=== PATIENT | male | born 1940 | race Caucasian/White ===

== ENCOUNTER 2021-03-20 14:23 | Inpatient (IN) ==
--- NOTE | 2021-03-20 15:54 | Emergency Department Note ---
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 Patient saw his primary care doctor yesterday no imaging was done. Patient continues to have pain and swelling in both legs mostly in the right knee and in the right foot and has been unable to ambulate due to the pain and swelling. 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 Patient also has a history of lymphedema. Patient has history atrial fibrillation takes high-dose aspirin daily. Does not take any other anticoagulants. Denies history of congestive heart failure liver or kidney disease. Patient denies any chest pain shortness of breath denies any headache head injury or neck pain or back injury or pain. Patient feels he is unable to manage at home due to difficulty with transfer and ambulation and feels he needs to be admitted to the hospital for short stay followed by [facility] for rehab. Related Data Home Medications Medication Instructions Recorded Confirmed aspirin [Ecotrin] 2,600 mg PO QDAY 01/15/21 01/15/21 metoprolol succinate 50 mg PO QDAY 01/15/21 01/15/21 Allergies Allergy/AdvReac Type Severity Reaction Status Date / Time No Known Drug Allergies Allergy Verified 01/15/21 09:35 Review of Systems ROS ROS Narrative: Narrative: All systems ED: reviewed and negative except as stated. Constitutional: Denies fever, chills and sweats Eyes: Denies vision change Cardiovascular: Denies chest pain Respiratory: Denies shortness of breath and cough Gastrointestinal: Denies abdominal pain, vomiting and diarrhea Genitourinary: Reports frequency Musculoskeletal: Reports as per HPI Integumentary: Denies rash Neurological: Denies headache and dizziness Endocrine: Denies polydipsia and polyuria Hematological/Lymphatic: Denies easy bleeding and easy bruising [facility] Narrative Patient History Narrative: Narrative: Medical/Surgical/Family History All Active Problems (Updated 03/20/21 @ 16:49 by Stephan Engel MD) Arthritis of knee, right (Acute) Fall as cause of accidental injury at home as place of occurrence (Acute) Knee pain, right (Acute) Contusion of foot (Acute) Need for assistance due to unsteady gait (Acute) Social History Smoking Status: Never smoker Exam Narrative Narrative: Constitutional: Awake alert no acute distress well-nourished well- developed HEENT: Normocephalic, atraumatic PERRLA, EOMI, oral mucosa moist, pharynx clear, Neck: Supple, no lymphadenopathy, no JVD Lungs: Breathing unlabored, lungs clear Cardiac: Regular regular rhythm normal distal pulses, GI: Soft nontender nondistended no guarding no rebound Musculoskeletal: Bilateral lower extremity edema, and tenderness bilateral thighs and calves, right knee is swollen and tender with limited range of motion, bilateral feet with swelling with tenderness and ecchymosis over multiple toes on the right. Neuro: Awake alert, cranial nerves II through XII grossly intact, no focal motor or sensory deficits Psychiatric: Normal mood and affect Skin: Warm dry no rash, cap refill less than 2 seconds Course Vital Signs Vital signs: Vital Signs Temperature 97.7 F 03/20/21 14:24 Pulse Rate 99 H 03/20/21 14:24 Respiratory Rate 18 03/20/21 14:24 Blood Pressure 111/62 03/20/21 14:24 Pulse Oximetry (%) 95 03/20/21 14:24 Temperature 97.7 F 03/20/21 14:24 Pulse Rate 99 H 03/20/21 14:24 Respiratory Rate 18 03/20/21 14:24 Blood Pressure 111/62 03/20/21 14:24 Pulse Oximetry (%) 95 03/20/21 14:24 [facility] MDM Narrative Medical decision making narrative: Narrative: 81-year-old male, 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 Also has or bruising over his right foot. Patient is unable to manage at home due to difficulty with ambulation and transferring. Patient will need short stay in the hospital followed by [facility] placement. Imaging has been ordered and is pending including x-ray of right knee x-ray of right foot and bilateral lower extremity venous Dopplers. Basic labs are also pending. Case discussed with oncoming physician who will review results and disposition patient. Differential Diagnosis Differential Diagnosis: muscle strain, right knee fx/sprain, DVT, right foot fx/sprain Lab Data Result diagrams: 03/20/21 16:00 03/20/21 16:00 Labs: Lab Results 03/20/21 Range/Units 16:00 WBC 8.8 (4.5-11.0) K/mcL RBC 3.98 L (4.50-5.90) M/mcL Hgb 14.3 (13.5-16.5) g/dL Hct 42.9 (41.0-55.0) % MCV 107.8 H (80.0-100.0) fL MCH 35.9 H (26.0-34.0) pg MCHC 33.3 (31.0-36.0) g/dL RDW 12.4 (11.5-14.5) % Plt Count 133 L (140-440) K/mcL MPV 10.0 (7.4-10.4) fL Discharge Plan Patient/Caregiver Discharge Instructions Pt seen by RESTAURANT SERVICE MANAGER/PA only: No Clinical Impression: Knee pain, right, Contusion of foot, Need for assistance due to unsteady gait Patient Disposition: Still a Patient Follow up with: Fahad Dorado MD [Primary Care Provider] - Prescriptions: No Action metoprolol succinate 50 mg Tablet Extended Release 24 Hr 50 mg PO QDAY RF: 0 aspirin [Ecotrin] 325 mg Tablet,Delayed Release (Dr/Ec) 2,600 mg PO QDAY RF: 0
[2021-03-20 16:48] LABS: Hematocrit 42.9 % (41.0-55.0); Hemoglobin 14.3 g/dL (13.5-16.5); Mean Cell Volume 107.8 fL (80.0-100.0); Mean Corpuscular HGB Conc 33.3 g/dL (31.0-36.0); Platelet Count 133 K/mcL (140-440); RBC 3.98 M/mcL (4.50-5.90); Red Cell Distribution Width 12.4 % (11.5-14.5); WBC 8.8 K/mcL (4.5-11.0)
--- NOTE | 2021-03-20 16:59 | Ultrasound Report ---
CLINICAL INFORMATION: Bilateral leg swelling COMPARISON: None. FINDINGS: The entire deep venous system of both lower extremities including the common femoral, superficial femoral, popliteal and paired trifurcation calf veins are easily compressible and show normal venous blood flow on color and spectral Doppler. No evidence of thrombus IMPRESSION: Negative exam - no evidence of deep vein thrombosis in both lower extremities. Interpreted and Authenticated by: Marvin Lawrence 03/20/21
--- NOTE | 2021-03-20 17:08 | XRay Report ---
CLINICAL INFORMATION: pain/fall COMPARISON: 01/15/2021 FINDINGS: No acute fracture identified. Exuberant callus around an old solidly unified fibular diaphyseal fracture. Severe patellofemoral and tibiofemoral degeneration in noted resulting in a genu valgus deformity. Moderate posttraumatic effusion in the suprapatellar bursa noted. IMPRESSION: 1. No fracture identified. Moderate supra patellar effusion is posttraumatic 2. 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 3. Healed fracture of the proximal fibular diaphysis with exuberant surrounding callus Interpreted and Authenticated by: Marvin Lawrence 03/20/21
--- NOTE | 2021-03-20 17:12 | XRay Report ---
CLINICAL INFORMATION: pain/fall COMPARISON: None. FINDINGS: Hairline spiral fracture of the first proximal phalangeal diaphysis appreciated. There are also nondisplaced oblique fracture through the second third fourth and fifth proximal phalangeal bases. First through fifth hammertoe deformities appreciated. Mild degenerative change present in all MTT, first MTP and interphalangeal joints. Moderate forefoot and midfoot soft tissue swelling noted. IMPRESSION: 1. Nondisplaced spiral hairline fracture throughout the first proximal phalanx. 2. Nondisplaced oblique fractures of the second, third, fourth and fifth proximal phalangeal bases. 3. Moderate forefoot and midfoot soft tissue swelling 4. First through fifth hammertoe deformities. Interpreted and Authenticated by: Marvin Lawrence 03/20/21
[2021-03-20 17:20] LABS: Eosinophils % (Manual) 1 % (0-7); Lymphocytes % 14 % (15-49); Macrocytosis 1+ (None Seen); Monocytes % (Manual) 11 % (1-12); Platelet Estimate DECREASED (Normal); RBC Morphology ABNORMAL (Normal); Segmented Neutrophils % 74 % (38-78)
[2021-03-20] MEDS ORDERED: ACETAMINOPHEN 650 MG/65 ML BAG IV PRN ×2 (17:43→20:45)
[2021-03-20] MEDS ORDERED: traMADol 50 MG TABLET PO ONE (17:44)
[2021-03-20 19:01] LABS: ALT/SGPT 12 U/L (<40); AST/SGOT 25 U/L (<40); Albumin 3.7 gm/dL (3.2-5.2); Albumin/Globulin Ratio 1.1 (1.0-2.3); Alkaline Phosphatase 92 U/L (39-117); Blood Urea Nitrogen 12 mg/dL (8-23); Calcium 8.7 mg/dL (8.6-10.4); Carbon Dioxide 27 mmol/L (22-30); Chloride 99 mmol/L (96-108); Globulin 3.3 gm/dL (2.2-3.7); Glomerular Filtration Rate 88; Glucose 140 mg/dL (70-105)
--- NOTE | 2021-03-20 19:28 | Emergency Department Note ---
HPI General Chief complaint: Fall Stated complaint: fall Time Seen by Provider: 03/20/21 15:23 Source: patient Mode of arrival: EMS Limitations: no limitations History of Present Illness HPI Narrative: Narrative: Patient was signed out to me by Dr. Rebollar, and I agree with work-up and plan thus far. Is my understanding the patient is an elderly retired medical field representative, who is coming in for worsening symptoms of inability to walk, multiple falls, and right foot pain. At signout, blood work and x-rays were pending. Vital signs were stable. Patient was resting comfortably in bed, and I did personally see and examine him. He is sitting up in bed, eating and drinking, and does not appear to be in acute discomfort or distress. Swelling to the right knee noted, as well as ecchymosis and bruising to the right foot. Otherwise no other significant findings. Related Data Home Medications Medication Instructions Recorded Confirmed aspirin [Ecotrin] 2,600 mg PO QDAY 01/15/21 01/15/21 metoprolol succinate 50 mg PO QDAY 01/15/21 01/15/21 Allergies Allergy/AdvReac Type Severity Reaction Status Date / Time No Known Drug Allergies Allergy Verified 01/15/21 09:35 Review of Systems ROS ROS Narrative: Narrative: Genitourinary: Reports frequency Musculoskeletal: Reports as per HPI [facility] Narrative Patient History Narrative: Narrative: Medical/Surgical/Family History All Active Problems (Updated 03/20/21 @ 19:26 by Juliocesar Tidwell DO) Arthritis of knee, right (Acute) Fall as cause of accidental injury at home as place of occurrence (Acute) Knee pain, right (Acute) Contusion of foot (Acute) Need for assistance due to unsteady gait (Acute) Closed fracture of toe (Acute) Social History Smoking Status: Never smoker Exam Narrative Narrative: Narrative: General Limitations: no limitations Course Vital Signs Vital signs: Vital Signs Temperature 97.7 F 03/20/21 14:24 Pulse Rate 99 H 03/20/21 14:24 Respiratory Rate 18 03/20/21 14:24 Blood Pressure 111/62 03/20/21 14:24 Pulse Oximetry (%) 95 03/20/21 14:24 Temperature 97.7 F 03/20/21 18:21 Pulse Rate 103 H 03/20/21 17:10 Respiratory Rate 16 03/20/21 17:09 Blood Pressure 140/82 03/20/21 17:16 Pulse Oximetry (%) 98 03/20/21 17:10 MDM MDM Narrative Medical decision making narrative: Narrative: Patient presented with chief complaint of falls and weakness. At this time patient has x-rays that were mostly negative outside of multiple fractures of every toe on his right foot. No significant displacement so the patient was placed into a walking boot for support while they heal. Blood work was unremarkable, however given the patient's persistent weakness is now becoming debilitating to the point where he has difficult times even sitting up or pivoting without significant help, the patient is concerned that he cannot take care of himself at home anymore. He is requesting to be admitted because he needs either rehab or placement into a assisted living or snf facility. I did discuss case the hospitalist, who agrees the plan at this time. Lab Data Result diagrams: 03/20/21 16:00 03/20/21 17:56 Labs: Lab Results 03/20/21 03/20/21 03/20/21 Range/Units 16:00 16:00 16:00 WBC 8.8 (4.5-11.0) K/mcL RBC 3.98 L (4.50-5.90) M/mcL Hgb 14.3 (13.5-16.5) g/dL Hct 42.9 (41.0-55.0) % MCV 107.8 H (80.0-100.0) fL MCH 35.9 H (26.0-34.0) pg MCHC 33.3 (31.0-36.0) g/dL RDW 12.4 (11.5-14.5) % Plt Count 133 L (140-440) K/mcL MPV 10.0 (7.4-10.4) fL Seg Neutrophils % 74 (38-78) % Lymphocytes % 14 L (15-49) % Monocytes % (Manual) 11 (1-12) % Eosinophils % (Manual) 1 (0-7) % Platelet Estimate Decreased A (Normal) RBC Morphology Abnormal A (Normal) Macrocytosis 1+ A (None Seen) Sodium TNP Potassium TNP Chloride TNP Carbon Dioxide TNP Anion Gap TNP BUN TNP Creatinine TNP GFR Calculation TNP Glucose TNP Calcium TNP Total Bilirubin TNP AST TNP ALT TNP Alkaline Phosphatase TNP Total Protein TNP Albumin TNP Globulin TNP Albumin/Globulin Ratio TNP Salicylates 9.3 mg/dL 03/20/21 Range/Units 17:56 WBC (4.5-11.0) K/mcL RBC (4.50-5.90) M/mcL Hgb (13.5-16.5) g/dL Hct (41.0-55.0) % MCV (80.0-100.0) fL MCH (26.0-34.0) pg MCHC (31.0-36.0) g/dL RDW (11.5-14.5) % Plt Count (140-440) K/mcL MPV (7.4-10.4) fL Seg Neutrophils % (38-78) % Lymphocytes % (15-49) % Monocytes % (Manual) (1-12) % Eosinophils % (Manual) (0-7) % Platelet Estimate (Normal) RBC Morphology (Normal) Macrocytosis (None Seen) Sodium 135 Potassium 4.0 Chloride 99 Carbon Dioxide 27 Anion Gap 9.0 BUN 12 Creatinine 0.7 GFR Calculation 88 Glucose 140 H Calcium 8.7 Total Bilirubin 1.0 AST 25 ALT 12 Alkaline Phosphatase 92 Total Protein 7.0 Albumin 3.7 Globulin 3.3 Albumin/Globulin Ratio 1.1 Salicylates mg/dL ED POC Tests ED POC Tests: JORDEN - SARS Antigen Negative Discharge Plan Patient/Caregiver Discharge Instructions Pt seen by EDITOR IN CHIEF NEWSPAPER/PA only: No Clinical Impression: Knee pain, right, Contusion of foot, Need for assistance due to unsteady gait, Closed fracture of toe Patient Disposition: Xfer As Inpt ([facility]) Follow up with: Fahad Dorado MD [Primary Care Provider] - Prescriptions: No Action metoprolol succinate 50 mg Tablet Extended Release 24 Hr 50 mg PO QDAY RF: 0 aspirin [Ecotrin] 325 mg Tablet,Delayed Release (Dr/Ec) 2,600 mg PO QDAY RF: 0
[2021-03-20] MEDS ORDERED: ONDANSETRON 4 MG/2 ML VIAL IV PRN ×2 (19:34→20:45)
--- NOTE | 2021-03-20 19:50 | Internal Med History&Physical ---
HPI History of Present Illness Patient information: Note initiated : 03/20/21 at 7:45 pm Service Date, if different from initiated Date: [] Patient: Crescencio Yang a 81 y/o M admitted on for fall. Chief Complaint: [] History of present illness: Mr. Yang is a 81 year old M Who presents the ED for weakness after fall and inability to walk and right foot pain. Patient fell about 3 days ago. Right foot swollen and bruised. Labs are unremarkable vital signs are unremarkable. Patient unsafe for home. Work-up in ED revealed fracture of the right toes with surrounding edema. Review of Systems: denies headache/fever/chills/nausea/vomiting/chest or abdominal pain/cough/dyspnea/diarrhea. Otherwise see above. PFSH PFSH All Active Problems (Updated 03/20/21 @ 19:26 by Juliocesar Tidwell DO) Arthritis of knee, right (Acute) Fall as cause of accidental injury at home as place of occurrence (Acute) Knee pain, right (Acute) Contusion of foot (Acute) Need for assistance due to unsteady gait (Acute) Closed fracture of toe (Acute) MEDS/ALLERGIES Home Medications and Allergies Home Medications Medication Instructions Recorded Confirmed Type aspirin [Ecotrin] 2,600 mg PO QDAY PRN 01/15/21 03/20/21 History metoprolol succinate 25 mg PO QDAY 01/15/21 03/20/21 History Allergies Allergy/AdvReac Type Severity Reaction Status Date / Time No Known Drug Allergies Allergy Verified 01/15/21 09:35 EXAM Constitutional Vitals: Temp Pulse Resp BP Pulse Ox 97.7 F 103 H 16 140/82 98 03/20/21 18:21 03/20/21 17:10 03/20/21 17:09 03/20/21 17:16 03/20/21 17:10 Exam: General: Alert, Awake, No acute Distress, obese Eyes/N/T: EOMI, Head/Neck: neck supple, normocephalic atraumatic CV: RRR, No murmurs, normal s1/s2 Pulm: Clear b/l, no wheezing/rhonchi/rales Abd: soft, nontender, +BS x4 Ext: no clubbing/cyanosis, right foot edema/bruising Neuro: Alert, no focal deficits, moves all extremities, CN 2-12 grossly intact, Skin: warm/dry DATA Data Completed and Pending Labs: Labs from last 24 hours 03/20/21 03/20/21 03/20/21 17:56 16:00 16:00 WBC RBC Hgb Hct MCV MCH MCHC RDW Plt Count MPV Seg Neutrophils % Lymphocytes % Monocytes % (Manual) Eosinophils % (Manual) Platelet Estimate RBC Morphology Macrocytosis Sodium 135 TNP Potassium 4.0 TNP Chloride 99 TNP Carbon Dioxide 27 TNP Anion Gap 9.0 TNP BUN 12 TNP Creatinine 0.7 TNP GFR Calculation 88 TNP Glucose 140 H TNP Calcium 8.7 TNP Total Bilirubin 1.0 TNP AST 25 TNP ALT 12 TNP Alkaline Phosphatase 92 TNP Total Protein 7.0 TNP Albumin 3.7 TNP Globulin 3.3 TNP Albumin/Globulin Ratio 1.1 TNP Salicylates 9.3 03/20/21 16:00 WBC 8.8 RBC 3.98 L Hgb 14.3 Hct 42.9 MCV 107.8 H MCH 35.9 H MCHC 33.3 RDW 12.4 Plt Count 133 L MPV 10.0 Seg Neutrophils % 74 Lymphocytes % 14 L Monocytes % (Manual) 11 Eosinophils % (Manual) 1 Platelet Estimate Decreased A RBC Morphology Abnormal A Macrocytosis 1+ A Sodium Potassium Chloride Carbon Dioxide Anion Gap BUN Creatinine GFR Calculation Glucose Calcium Total Bilirubin AST ALT Alkaline Phosphatase Total Protein Albumin Globulin Albumin/Globulin Ratio Salicylates A/P Narrative A/P Narrative: A: *Fall/inability to walk/multiple toe fractures of the right foot: *Osteoarthritis: *Spinal stenosis with neuropathy: *Afib: Not on anticoagulation by choice but does take multiple aspirin daily. on BB * P: -pt/to -CM for placement -boot to right foot -pain control -wound care, right foot -cont home BB - -ppx: lovenox Time Spent With Patient Time: Total time spent is greater than 50% in coordination of care (as documented) at patient's floor/unit and/or counseling patient:
[2021-03-20] MEDS ORDERED: POLYETHYLENE GLYCOL 3350 17 GM PACKET PO PRN (20:45)
[2021-03-20] MEDS ORDERED: POTASSIUM CHLORIDE 40 MEQ in DEXTROSE 5% IN WATER 500 ML IV PRN (20:45)
[2021-03-20] MEDS ORDERED: MAGNESIUM SULFATE 2 GM/50 ML BAG IV PRN (20:45)
[2021-03-20] MEDS ORDERED: oxyCODONE HCL 5 MG TABLET PO PRN (20:45)
[2021-03-20] MEDS ORDERED: SENNOSIDES 1 TABLET PO PRN (20:45)
[2021-03-20] MEDS ORDERED: POTASSIUM CHLORIDE 20 MEQ TABLET PO PRN ×2 (20:45)
[2021-03-20] MEDS ORDERED: 0.9 % SODIUM CHLORIDE 10 ML SYRINGE IV SCH (22:00)
[2021-03-20] MEDS ORDERED: ASPIRIN 325 MG ENTERIC COATED TABLET PO SCH (22:00)
[2021-03-20] MEDS ORDERED: METOPROLOL TARTRATE 25 MG TABLET ONE (22:08)
[2021-03-20] MEDS: DOCUSATE SODIUM 100 MG CAPSULE PO SCH (22:43)
[2021-03-20] MEDS: 0.9 % SODIUM CHLORIDE 10 ML SYRINGE IV SCH (22:44)
[2021-03-21] MEDS ORDERED: traMADol 50 MG TABLET PO ONE ×2 (01:06→05:47)
[2021-03-21] MEDS: traMADol 50 MG TABLET PO PRN ×2 (01:06→14:38)
[2021-03-21] MEDS: 0.9 % SODIUM CHLORIDE 10 ML SYRINGE IV SCH ×3 (06:07→21:17)
--- NOTE | 2021-03-21 07:30 | Internal Med Progress Note ---
SUBJECTIVE Subjective Patient information: Note initiated : 03/21/21 at 7:29 am Service Date, if different from initiated Date: [] Patient: Crescencio Yang a 81 y/o M admitted on 03/20/21 for fall. Chief Complaint: [] Interval history: History of present illness: Mr. Yang is a 81 year old M Who presents the ED for weakness after fall and inability to walk and right foot pain. Patient fell about 3 days ago. Right foot swollen and bruised. Labs are unremarkable vital signs are unremarkable. Patient unsafe for home. Work-up in ED revealed fracture of the right toes with surrounding edema. 03/21 No overnight event or new complaints. Worked with physical therapy this morning. Review of Systems: denies headache/fever/chills/nausea/vomiting/chest or abdominal pain/cough/dyspnea/diarrhea. Otherwise see above. Constitutional Vitals: Vital Signs Temp Pulse Resp BP Pulse Ox 98.9 F 86 16 105/68 93 03/21/21 07:20 03/21/21 07:20 03/21/21 07:20 03/21/21 07:20 03/21/21 07:20 Period Temp Pulse Resp BP Sys/Osorio Pulse Ox Last 24 Hr 97.7 F-98.9 F 84-103 16-18 99-177/56-88 93-98 Intake and Output 03/20/21 03/21/21 03/21/21 21:59 05:59 13:59 Intake Total 65 400 65 Output Total 550 200 Balance 65 -150 -135 Weight 139.253 kg Intake & Output: Intake & Output 03/20/21 03/21/21 03/21/21 21:59 05:59 13:59 Intake Total 65 400 65 Output Total 550 200 Balance 65 -150 -135 Weight 139.253 kg Intake: IV 65 65 Oral 400 Output: Void Amount 550 200 Other: Urine Appearance Clear Clear Clear Urine Color Bright Yellow Dark Yellow Dark Jessica Urine Odor Normal Exam: General: Alert, Awake, No acute Distress, obese Eyes/N/T: EOMI, Head/Neck: neck supple, CV: RRR, No murmurs, Pulm: Clear b/l, no wheezing/rhonchi/rales Abd: soft, nontender, +BS x4 Ext: no clubbing/cyanosis, right foot edema/bruising Neuro: Alert, no focal deficits, moves all extremities, Skin: warm/dry OBJ DATA Labs CBC & Chem 7: 03/20/21 16:00 03/20/21 17:56 Labs: Abnormal Lab Results 03/20/21 03/20/21 17:56 16:00 RBC 3.98 L MCV 107.8 H MCH 35.9 H Plt Count 133 L Lymphocytes % 14 L Platelet Estimate Decreased A RBC Morphology Abnormal A Macrocytosis 1+ A Glucose 140 H Meds: Medications Aspirin (Aspirin 325 Mg Enteric Coated Tablet) 325 mg PO HS [facility] Last Admin: 03/20/21 22:43 Dose: 325 mg Documented by: Docusate Sodium (Docusate Sodium 100 Mg Capsule) 100 mg PO BID [facility] Last Admin: 03/20/21 22:43 Dose: 100 mg Documented by: Enoxaparin Sodium (Enoxaparin 40 Mg/0.4 Ml Syringe) 40 mg SQ DAILY [facility] Acetaminophen (Ofirmev) 650 mg in 65 mls @ 130 mls/hr IV Q6HP PRN; Protocol PRN Reason: PAIN/FEVER > 101 Last Infusion: 03/21/21 07:04 Dose: Infused Documented by: Potassium Chloride 40 meq/ (Dextrose) 520 mls @ 130 mls/hr IV UD PRN PRN Reason: Potassium < 3 Magnesium Sulfate (Magnesium Sulfate) 2 gm in 50 mls @ 50 mls/hr IV UD PRN PRN Reason: Magnesium </= 1.6 Metoprolol Succinate (Metoprolol Succinate 25 Mg Tab.Xl.24h) 25 mg PO [facility] Ondansetron HCl (Ondansetron 4 Mg/2 Ml Vial) 4 mg IV Q4HP PRN PRN Reason: Nausea And Vomiting Oxycodone HCl (Oxycodone Hcl 5 Mg Tablet) 0 mg PO Q4HP PRN; Protocol PRN Reason: Per Pain Protocol Polyethylene Glycol (Polyethylene Glycol 3350 17 Gm Packet) 17 gm PO DAILYP PRN PRN Reason: Constipation Potassium Chloride (Potassium Chloride 20 Meq Tablet) 40 meq PO UD PRN PRN Reason: Potssium is 3-3.5 Potassium Chloride (Potassium Chloride 20 Meq Tablet) 40 meq PO UD PRN PRN Reason: Potassium < 3 Senna (Sennosides 1 Tablet) 2 tab PO DAILYP PRN PRN Reason: Constipation Sodium Chloride (0.9 % Sodium Chloride 10 Ml Syringe) 10 ml IV Q8 MONY Last Admin: 03/21/21 06:07 Dose: 10 ml Documented by: Tramadol HCl (Tramadol 50 Mg Tablet) 50 mg PO Q6HP PRN; Protocol PRN Reason: Pain Last Admin: 03/21/21 01:06 Dose: 50 mg Documented by: A/P Narrative A/P Narrative: A: *Fall/inability to walk/multiple toe fractures of the right foot: *Osteoarthritis: *Spinal stenosis with neuropathy: *Afib: Not on anticoagulation by choice but does take multiple aspirin daily. on BB P: -pt/to -CM for placement -boot to right foot -pain control -wound care, right foot -cont home BB -ppx: lovenox Time Spent With Patient Time: Total time spent is greater than 50% in coordination of care (as documented) at patient's floor/unit and/or counseling patient: QUALITY VTE Deep Vein Thrombosis/Pulmonary Embolism Present on Admission: No
[2021-03-21] MEDS: DOCUSATE SODIUM 100 MG CAPSULE PO SCH ×2 (08:22→21:16)
[2021-03-21] MEDS ORDERED: ASPIRIN 325 MG ENTERIC COATED TABLET PO SCH (09:00)
[2021-03-21] MEDS ORDERED: ENOXAPARIN 40 MG/0.4 ML SYRINGE SQ SCH (09:00)
[2021-03-21] MEDS ORDERED: METOPROLOL SUCCINATE 50 MG TAB.XL.24H PO SCH (09:00)
--- NOTE | 2021-03-21 09:28 | Discharge Summary ---
Discharge Provider Provider Patient information: Note initiated : 03/21/21 at 9:26 am Service Date, if different from initiated Date: [] Patient: Crescencio Yang 81 y/o M admitted on 03/20/21 for fall. Chief Complaint: [] Date of admission: 03/20/21 20:37 Primary care physician: Fahad Dorado Consults: 03/20/21 Consult to Physician [CONS] Stat Comment: Consulting Provider: Morris Najera Reason For Exam: Physician to Consult Discharge Meds Discharge Medications Home Medications aspirin [Ecotrin] 975 mg PO TID 01/15/21 [History Confirmed 03/21/21 Last Taken 03/20/21 11:00] metoprolol succinate 25 mg PO QDAY 01/15/21 [History Confirmed 03/20/21 Last Taken 03/19/21 21:00] COURSE Hospital Course Hospital course: Interval history: History of present illness: Mr. Yang is a 81 year old M Who presents the ED for weakness after fall and inability to walk and right foot pain. Patient fell about 3 days ago. Right foot swollen and bruised. Labs are unremarkable vital signs are unremarkable. Patient unsafe for home. Work-up in ED revealed fracture of the right toes with surrounding edema. 03/21 No overnight event or new complaints. Worked with physical therapy this morning. A: *Fall/inability to walk/multiple toe fractures of the right foot: *Osteoarthritis: *Spinal stenosis with neuropathy: *Afib: Not on anticoagulation by choice but does take multiple aspirin daily. on BB Discharge diagnosis: Fall inability to walk right toe fractures Secondary discharge diagnosis: Spinal stenosis with neuropathy osteoarthritis A. fib but has refused anticoagulation Time Spent with Patient Time attestation: Total time spent providing and/or coordinating discharge services: Time spent: Greater than 30 minutes EXAM Constitutional Vitals: Temp Pulse Resp BP Pulse Ox 98.9 F 72 16 105/68 93 03/21/21 07:20 03/21/21 08:00 03/21/21 07:20 03/21/21 07:20 03/21/21 07:20 Discharge Data Data Completed and Pending Labs on day of discharge: Labs from last 24 hours 03/20/21 03/20/21 03/20/21 17:56 16:00 16:00 WBC RBC Hgb Hct MCV MCH MCHC RDW Plt Count MPV Seg Neutrophils % Lymphocytes % Monocytes % (Manual) Eosinophils % (Manual) Platelet Estimate RBC Morphology Macrocytosis Sodium 135 TNP Potassium 4.0 TNP Chloride 99 TNP Carbon Dioxide 27 TNP Anion Gap 9.0 TNP BUN 12 TNP Creatinine 0.7 TNP GFR Calculation 88 TNP Glucose 140 H TNP Calcium 8.7 TNP Total Bilirubin 1.0 TNP AST 25 TNP ALT 12 TNP Alkaline Phosphatase 92 TNP Total Protein 7.0 TNP Albumin 3.7 TNP Globulin 3.3 TNP Albumin/Globulin Ratio 1.1 TNP Salicylates 9.3 03/20/21 16:00 WBC 8.8 RBC 3.98 L Hgb 14.3 Hct 42.9 MCV 107.8 H MCH 35.9 H MCHC 33.3 RDW 12.4 Plt Count 133 L MPV 10.0 Seg Neutrophils % 74 Lymphocytes % 14 L Monocytes % (Manual) 11 Eosinophils % (Manual) 1 Platelet Estimate Decreased A RBC Morphology Abnormal A Macrocytosis 1+ A Sodium Potassium Chloride Carbon Dioxide Anion Gap BUN Creatinine GFR Calculation Glucose Calcium Total Bilirubin AST ALT Alkaline Phosphatase Total Protein Albumin Globulin Albumin/Globulin Ratio Salicylates Discharge Plan Patient/Caregiver Discharge Instructions Activity: increase activity as tolerated Diet: Regular Diet Prescriptions: No Action metoprolol succinate 50 mg Tablet Extended Release 24 Hr 25 mg PO QDAY RF: 0 aspirin [Ecotrin] 325 mg Tablet,Delayed Release (Dr/Ec) 975 mg PO TID RF: 0 Follow Up Plan Follow up with: Fahad Dorado MD [Primary Care Provider] - Patient Disposition: Xfer SNF Prognosis: Fair Rehab Potential: Fair I certify that the patient requires SNF services: Yes Overall status at discharge: patient is progressing back to baseline QUALITY VTE Deep Vein Thrombosis/Pulmonary Embolism Present on Admission: No
[2021-03-21] MEDS: ASPIRIN 325 MG ENTERIC COATED TABLET PO SCH ×2 (14:38→21:17)
[2021-03-21] MEDS ORDERED: METOPROLOL SUCCINATE 25 MG TAB.XL.24H PO SCH (21:00)
[2021-03-21] MEDS ORDERED: METOPROLOL TARTRATE 5 MG/5 ML VIAL IV ONE ×2 (23:04→23:22)
[2021-03-21] MEDS: METOPROLOL TARTRATE 5 MG/5 ML VIAL IV SCH ×2 (23:09→23:22)
[2021-03-22] MEDS ORDERED: METOPROLOL TARTRATE 5 MG/5 ML VIAL IV ONE (01:45)
[2021-03-22] MEDS: METOPROLOL TARTRATE 5 MG/5 ML VIAL IV SCH ×3 (01:49→16:17)
[2021-03-22] MEDS: METOPROLOL TARTRATE 5 MG/5 ML VIAL IV PRN ×2 (01:50→14:41)
[2021-03-22] MEDS: 0.9 % SODIUM CHLORIDE 10 ML SYRINGE IV SCH ×3 (05:07→22:00)
--- NOTE | 2021-03-22 07:48 | Internal Med Progress Note ---
SUBJECTIVE Subjective Patient information: Note initiated : 03/22/21 at 7:45 am Service Date, if different from initiated Date: [] Patient: Crescencio Yang a 81 y/o M admitted on 03/20/21 for fall. Chief Complaint: [] Interval history: History of present illness: Mr. Yang is a 81 year old M Who presents the ED for weakness after fall and inability to walk and right foot pain. Patient fell about 3 days ago. Right foot swollen and bruised. Labs are unremarkable vital signs are unremarkable. Patient unsafe for home. Work-up in ED revealed fracture of the right toes with surrounding edema. 03/21 No overnight event or new complaints. Worked with physical therapy this morning. 03/22 A. fib RVR last night. IV Lopressor given several times in the night with improved heart rate. No new complaints this morning. We will increase his Toprol. Review of Systems: denies headache/fever/chills/nausea/vomiting/chest or abdominal pain/cough/dys pnea/diarrhea. Otherwise see above. Constitutional Vitals: Vital Signs Temp Pulse Resp BP Pulse Ox 97.7 F 75 16 112/70 95 03/22/21 07:06 03/22/21 07:06 03/22/21 07:06 03/22/21 07:06 03/22/21 07:06 Period Temp Pulse Resp BP Sys/Osorio Pulse Ox Last 24 Hr 97.7 F-99.5 F 72-120 16-20 101-125/64-78 92-95 Intake and Output 03/21/21 03/22/21 03/22/21 21:59 05:59 13:59 Intake Total 240 100 Output Total 250 Balance 240 -150 Weight 149.685 kg Intake & Output: Intake & Output 03/21/21 03/22/21 03/22/21 21:59 05:59 13:59 Intake Total 240 100 Output Total 250 Balance 240 -150 Weight 149.685 kg Intake: Oral 240 100 Output: Void Amount 250 Other: Urine Appearance Clear Clear Urine Color Bright Yellow Bright Yellow Exam: General: Alert, Awake, No acute Distress, obese Eyes/N/T: EOMI, Head/Neck: neck supple, CV: irreg irreg, No murmurs, Pulm: Clear b/l, no wheezing/rhonchi/rales Abd: soft, nontender, +BS x4 Ext: no clubbing/cyanosis, right foot edema/bruising Neuro: Alert, no focal deficits, moves all extremities, Skin: warm/dry OBJ DATA Labs CBC & Chem 7: 03/20/21 16:00 03/20/21 17:56 Labs: Abnormal Lab Results 03/20/21 03/20/21 17:56 16:00 RBC 3.98 L MCV 107.8 H MCH 35.9 H Plt Count 133 L Lymphocytes % 14 L Platelet Estimate Decreased A RBC Morphology Abnormal A Macrocytosis 1+ A Glucose 140 H Meds: Medications Aspirin (Aspirin 325 Mg Enteric Coated Tablet) 975 mg PO TID [facility] Last Admin: 03/21/21 21:17 Dose: 975 mg Documented by: Docusate Sodium (Docusate Sodium 100 Mg Capsule) 100 mg PO BID [facility] Last Admin: 03/21/21 21:16 Dose: 100 mg Documented by: Acetaminophen (Ofirmev) 650 mg in 65 mls @ 130 mls/hr IV Q6HP PRN; Protocol PRN Reason: PAIN/FEVER > 101 Last Infusion: 03/21/21 07:04 Dose: Infused Documented by: Potassium Chloride 40 meq/ (Dextrose) 520 mls @ 130 mls/hr IV UD PRN PRN Reason: Potassium < 3 Magnesium Sulfate (Magnesium Sulfate) 2 gm in 50 mls @ 50 mls/hr IV UD PRN PRN Reason: Magnesium </= 1.6 Metoprolol Succinate (Metoprolol Succinate 25 Mg Tab.Xl.24h) 25 mg PO [facility] Last Admin: 03/21/21 21:16 Dose: 25 mg Documented by: Metoprolol Tartrate (Metoprolol Tartrate 5 Mg/5 Ml Vial) 5 mg IV Q2HP PRN PRN Reason: Tachyarrhythmias Last Admin: 03/22/21 01:50 Dose: 5 mg Documented by: Ondansetron HCl (Ondansetron 4 Mg/2 Ml Vial) 4 mg IV Q4HP PRN PRN Reason: Nausea And Vomiting Oxycodone HCl (Oxycodone Hcl 5 Mg Tablet) 0 mg PO Q4HP PRN; Protocol PRN Reason: Per Pain Protocol Polyethylene Glycol (Polyethylene Glycol 3350 17 Gm Packet) 17 gm PO DAILYP PRN PRN Reason: Constipation Potassium Chloride (Potassium Chloride 20 Meq Tablet) 40 meq PO UD PRN PRN Reason: Potssium is 3-3.5 Potassium Chloride (Potassium Chloride 20 Meq Tablet) 40 meq PO UD PRN PRN Reason: Potassium < 3 Senna (Sennosides 1 Tablet) 2 tab PO DAILYP PRN PRN Reason: Constipation Sodium Chloride (0.9 % Sodium Chloride 10 Ml Syringe) 10 ml IV Q8 [facility] Last Admin: 03/22/21 05:07 Dose: 10 ml Documented by: Tramadol HCl (Tramadol 50 Mg Tablet) 50 mg PO Q6HP PRN; Protocol PRN Reason: Pain Last Admin: 03/21/21 14:38 Dose: 50 mg Documented by: A/P Narrative A/P Narrative: A: *Fall/inability to walk/multiple toe fractures of the right foot: *Osteoarthritis: *Spinal stenosis w/neuropathy: *Afib w/rvr: Not on anticoagulation by choice but does take multiple aspirin daily. on BB P: -pt/to -CM for placement -boot to right foot -pain control -wound care, right foot -cont home BB (increase) -ppx: lovenox (refused, wanted to take extra aspirin) Time Spent With Patient Time: Total time spent is greater than 50% in coordination of care (as documented) at patient's floor/unit and/or counseling patient: QUALITY VTE Deep Vein Thrombosis/Pulmonary Embolism Present on Admission: No
[2021-03-22] MEDS: ASPIRIN 325 MG ENTERIC COATED TABLET PO SCH ×3 (08:15→21:13)
[2021-03-22] MEDS: DOCUSATE SODIUM 100 MG CAPSULE PO SCH ×2 (08:15→20:04)
[2021-03-22 09:00] LABS: ALT/SGPT 44 U/L (<40); AST/SGOT 202 U/L (<40); Albumin 3.2 gm/dL (3.2-5.2); Alkaline Phosphatase 97 U/L (39-117); Bilirubin,Direct 0.5 mg/dL (<0.3); Bilirubin,Total 1.4 mg/dL (0.1-1.0); Blood Urea Nitrogen 10 mg/dL (8-23); Calcium 8.7 mg/dL (8.6-10.4); Carbon Dioxide 27 mmol/L (22-30); Chloride 98 mmol/L (96-108); Globulin 3.1 gm/dL (2.2-3.7); Glomerular Filtration Rate 88; Glucose 98 mg/dL (70-105); Lactate Dehydrogenase 253 U/L (135-225); Phosphorous 2.5 mg/dL (2.5-4.5); Triglycerides 47 mg/dL (<150); Uric Acid 2.3 mg/dL (2.5-8.0)
[2021-03-22] MEDS ORDERED: METOPROLOL SUCCINATE 25 MG TAB.XL.24H PO SCH (09:00)
[2021-03-22] MEDS ORDERED: SODIUM BICARBONATE VIAL 150 MEQ in DEXTROSE 5% IN WATER 850 ML IV SCH (11:30)
[2021-03-22] MEDS ORDERED: SODIUM BICARBONATE VIAL 150 MEQ in WATER FOR INJECTION,STERILE 850 ML IV SCH ×2 (12:00→22:00)
--- NOTE | 2021-03-22 13:05 | General Surgery Consult Note ---
HPI Data of Consult Consult date: 03/22/21 Requesting physician: Morris Najera Primary Care Provider: Fahad Dorado Consult Narrative Patient Information: Note initiated : 03/22/21 at 12:49 pm Service Date, if different from initiated Date: [] Patient: Crescencio Yang 81 y/o M admitted on 03/20/21 for fall. Chief Complaint: [] Chief complaint: Fall at home, resulting in closed fractures RIGHT 2-5 toes, Reason for consult: Wound Care initial evaluation and subsequent f/u. 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 Reviewed details of his present history of fall at home and subsequent events leading to hospitalization at [facility]. Discussed plan of care with Chelsie RN and Jorge Alberto RN I/C and Dr. Najera, Hospitalist physician. Musculoskeletal Musculoskeletal: Present as per HPI and other Additional comments: Patient is currently non ambulatory and NWB on Right foot and leg. ( Closed fractures RIGHT 2-5 toes ) Lymphedema of feet and leg Integumentary Integumentary: Present as per HPI and other Additional comments: Currently foot is bandaged. Toes are PWD. Will take down dressing and examinen wounds in AM (Wednesday03/23/2021 ) PFSH PFSH All Active Problems Arthritis of knee, right (Acute) Fall as cause of accidental injury at home as place of occurrence (Acute) Knee pain, right (Acute) Contusion of foot (Acute) Need for assistance due to unsteady gait (Acute) Closed fracture of toe (Acute) MEDS/ALLERGIES Home Medications and Allergies Home Medications Medication Instructions Recorded Confirmed Type aspirin [Ecotrin] 975 mg PO TID 01/15/21 03/21/21 History metoprolol succinate 25 mg PO QDAY 01/15/21 03/20/21 History Allergies Allergy/AdvReac Type Severity Reaction Status Date / Time No Known Drug Allergies Allergy Verified 01/15/21 09:35 Physical Examination Vital Signs Vital signs: Temp Pulse Resp BP Pulse Ox 97.5 F 77 18 116/71 96 03/22/21 11:21 03/22/21 11:21 03/22/21 11:21 03/22/21 11:21 03/22/21 11:21 General physical appearance General physical exam: well developed, well nourished, no distress and moderate pain Eyes Eye exam: PERRL and normal ocular movement ENT ENT exam: normal pinna, normal mucosa and no congestion Head Head exam IM: Present atraumatic and normocephalic Neck Neck exam: no masses, no lymphadenopathy and no venous distension Cardiovascular Cardiovascular exam IM: Present normal rate and rhythm Respiratory Respiratory exam: normal expansion, normal respiratory effort and clear to auscultation Abdomen Abdomen: Present soft, non tender and bowel sounds Integumentary Integumentary: Present other (RIGHT LE lymphedema of leg and foot. Clean badage covereing foot Toes are PWD. Will check wounds in AM ( Wednesday03/23/2021 )) Neurologic Neurologic: Present other (No gross neural deficits or localising signs. He has peripheral neuropathy of both feet. ) Musculoskeletal Musculoskeletal: Present other (Currently NWB on RIGHT foot. ) Psychiatric Psychiatric: Present oriented to time, oriented to person, oriented to place, speech is normal and memory intact Results Labs Result diagrams: 03/20/21 16:00 03/23/21 05:27 Labs: Abnormal lab results 03/22/21 03/22/21 Range/Units 07:58 07:58 Uric Acid 2.3 L (2.5-8.0) mg/dL Total Bilirubin 1.4 H (0.1-1.0) mg/dL Direct Bilirubin 0.5 H (<0.3) mg/dL AST 202 H (<40) U/L ALT 44 H (<40) U/L Lactate Dehydrogenase 253 H (135-225) U/L Total Creatine Kinase 3758 H (24-195) U/L Diabetes panel 03/22/21 Range/Units 07:58 Sodium 134 (133-145) mmol/L Potassium 4.0 (3.3-5.1) mmol/L Chloride 98 (96-108) mmol/L Carbon Dioxide 27 (22-30) mmol/L BUN 10 (8-23) mg/dL Creatinine 0.7 (0.7-1.2) mg/dL Glucose 98 (70-105) mg/dL Calcium 8.7 (8.6-10.4) mg/dL AST 202 H (<40) U/L ALT 44 H (<40) U/L Alkaline Phosphatase 97 (39-117) U/L Total Protein 6.3 (5.9-8.4) gm/dL Albumin 3.2 (3.2-5.2) gm/dL Triglycerides 47 (<150) mg/dL Calcium panel 03/22/21 Range/Units 07:58 Calcium 8.7 (8.6-10.4) mg/dL Phosphorus 2.5 (2.5-4.5) mg/dL Albumin 3.2 (3.2-5.2) gm/dL Pituitary panel 03/22/21 Range/Units 07:58 Sodium 134 (133-145) mmol/L Potassium 4.0 (3.3-5.1) mmol/L Chloride 98 (96-108) mmol/L Carbon Dioxide 27 (22-30) mmol/L BUN 10 (8-23) mg/dL Creatinine 0.7 (0.7-1.2) mg/dL Glucose 98 (70-105) mg/dL Calcium 8.7 (8.6-10.4) mg/dL Adrenal panel 03/22/21 Range/Units 07:58 Sodium 134 (133-145) mmol/L Potassium 4.0 (3.3-5.1) mmol/L Chloride 98 (96-108) mmol/L Carbon Dioxide 27 (22-30) mmol/L BUN 10 (8-23) mg/dL Creatinine 0.7 (0.7-1.2) mg/dL Glucose 98 (70-105) mg/dL Calcium 8.7 (8.6-10.4) mg/dL Total Bilirubin 1.4 H (0.1-1.0) mg/dL AST 202 H (<40) U/L ALT 44 H (<40) U/L Alkaline Phosphatase 97 (39-117) U/L Total Protein 6.3 (5.9-8.4) gm/dL Albumin 3.2 (3.2-5.2) gm/dL All other labs normal. A/P Narrative A/P Narrative: Assessment: Ground level fall at home. NO h/o LOC or cardiac / respiratory symptoms. Spinal stenosis Peripheral neuropathy. Rhabdomyolysis. Co morbid conditions A Fib. On ASA and BB DJD OA. Plan: Reviewed ongoing medical management. Will check wounds in AM Agree with Short term rehab per CM Will continue with f/u at wound care center after D/C. Time Spent With Patient Time: Total time spent is greater than 50% in coordination of care (as documented) at patient's floor/unit and/or counseling patient: Total time spent with greater than 50% in coordination of care (as documented) at patient's floor/unit and/or counseling patient:: 25 - 35 minutes
[2021-03-22 13:15] LABS: Appearance,Urine CLEAR (Clear); Bilirubin,Urine Negative (Negative); Color,Urine AMBER; Culture Indicated,Urine No; Glucose,Urine (UA) Negative (Negative); Ketones,Urine 20 mg/dL (Negative); Leukocyte Esterase,Urine Negative /ug (Negative); Mucus,Urine MOD /hpf; Nitrate,Urine Negative (Negative); Protein,Urine Negative (Negative); Specific Gravity,Urine 1.025 (1.000-1.035); Urine Hyaline Cast 1 /lph (0-2); Urine RBC 0 /hpf (0-3); Urine Squamous Epithelial Cell < 1 /hpf (0-4); Urine WBC < 1 /hpf (0-4)
[2021-03-22] MEDS ORDERED: IOPAMIDOL 100 ML BOTTLE IV ONE ×2 (13:53→18:08)
[2021-03-22] MEDS ORDERED: SENNOSIDES 1 TABLET PO PRN (18:08)
[2021-03-22] MEDS ORDERED: METOPROLOL TARTRATE 5 MG/5 ML VIAL IV PRN (18:08)
[2021-03-22] MEDS ORDERED: ONDANSETRON 4 MG/2 ML VIAL IV PRN (18:08)
[2021-03-22] MEDS ORDERED: MAGNESIUM SULFATE 2 GM/50 ML BAG IV PRN (18:08)
[2021-03-22] MEDS ORDERED: POTASSIUM CHLORIDE 20 MEQ TABLET PO PRN ×2 (18:08)
[2021-03-22] MEDS ORDERED: POLYETHYLENE GLYCOL 3350 17 GM PACKET PO PRN (18:08)
[2021-03-22] MEDS ORDERED: traMADol 50 MG TABLET PO PRN (18:08)
[2021-03-22] MEDS ORDERED: POTASSIUM CHLORIDE 40 MEQ in DEXTROSE 5% IN WATER 500 ML IV PRN (18:08)
[2021-03-22] MEDS ORDERED: MAGNESIUM SULFATE 8.12 MEQ in DEXTROSE 5% IN WATER 50 ML IV ONE (18:08)
[2021-03-22] MEDS ORDERED: DILTIAZEM 125 MG/25 ML VIAL IV ONE (18:11)
--- NOTE | 2021-03-22 18:32 | Cat Scan Report ---
CLINICAL INFORMATION: Trauma COMPARISON: Foot films 03/20/2021 TECHNIQUE: 0.625 mm helical slices were obtained through the distal femoral metaphysis through the entire calf foot and ankle. Following reconstruction, 2.5 axial, sagittal coronal reformatted images were processed and reviewed at bone and soft tissue windows.. FINDINGS: Acute nondisplaced spiral fracture of the first proximal phalanx and a spiral hairline fracture of the second proximal phalanx appreciated. A transverse minimally displaced fracture through the fifth proximal phalangeal base noted. Subtle cortical step-off the base of the third and fourth proximal phalanges also likely represent fractures although there were better visualized on plain film. There are no acute fractures throughout the remaining foot, ankle, tibia, fibula or visualized distal femur. A solid unified fracture of the proximal fibular diaphysis with moderate surrounding callus is anatomically aligned. Moderate disuse osteoporosis noted throughout the lower extremity. Severe tibiofemoral and patellofemoral degeneration with large effusions in the patellofemoral and tibiofemoral joints and scattered loose bodies within the effusion. There is marked atrophy of the posterior compartment musculature within the calf and moderate atrophy in the anterior compartment musculature. There is also moderate atrophy of all foot, musculature. Scattered subcutaneous edema throughout the distal calf, foot and ankle IMPRESSION: Nondisplaced spiral fracture - first proximal phalanx. Nondisplaced hairline fracture - second proximal phalanx. Minimally displaced transverse fracture fifth proximal phalanx base. Cortical step-off of the third and fourth proximal phalanges likely represent fractures. They're better seen on plain film No evidence of acute fracture and the remainder of the foot, ankle, tibia or fibula. A solidly united old fracture of the proximal fibular diaphysis is anatomically aligned. Severe patellofemoral and tibiofemoral degeneration with large effusion in the tibiofemoral and patellofemoral joint with scattered loose bodies. Moderate diffuse osteoporosis Severe atrophy of the posterior compartment musculature, moderate atrophy of the anterior compartment musculature and all foot musculature is related to disuse. Interpreted and Authenticated by: Marvin Lawrence 03/22/21
[2021-03-22] MEDS: 0.9 % SODIUM CHLORIDE 250 ML IV SCH (18:45)
[2021-03-22] MEDS: DILTIAZEM 125 MG in DEXTROSE 5% IN WATER 100 ML IV SCH (18:45)
[2021-03-22] MEDS ORDERED: chlordiazePOXIDE 25 MG CAPSULE PO PRN (19:41)
[2021-03-22] MEDS ORDERED: LORazepam 2 MG/ML VIAL IV PRN (19:41)
[2021-03-22] MEDS ORDERED: 0.9 % SODIUM CHLORIDE 1,000 ML IV SCH ×3 (20:00)
[2021-03-22] MEDS: METOPROLOL SUCCINATE 25 MG TAB.XL.24H PO SCH (20:04)
[2021-03-22] MEDS ORDERED: MAGNESIUM SULFATE 8.12 MEQ/2 ML VIAL ONE (20:34)
[2021-03-22] MEDS ORDERED: 0.9 % SODIUM CHLORIDE 10 ML SYRINGE IV SCH (22:00)
[2021-03-23 01:58] LABS: Appearance,Urine CLEAR (Clear); Bilirubin,Urine Negative (Negative); Color,Urine AMBER; Culture Indicated,Urine No; Glucose,Urine (UA) >=500 mg/dL (Negative); Ketones,Urine 20 mg/dL (Negative); Leukocyte Esterase,Urine Negative /ug (Negative); Nitrate,Urine Negative (Negative); Protein,Urine Negative (Negative); Specific Gravity,Urine 1.036 (1.000-1.035); Urine RBC 1 /hpf (0-3); Urine Squamous Epithelial Cell 0 /hpf (0-4); Urine WBC 1 /hpf (0-4)
[2021-03-23] MEDS: 0.9 % SODIUM CHLORIDE 10 ML SYRINGE IV SCH ×3 (05:34→21:00)
[2021-03-23] MEDS: 0.9 % SODIUM CHLORIDE 250 ML IV SCH ×2 (05:59→21:02)
[2021-03-23] MEDS: DILTIAZEM 125 MG in DEXTROSE 5% IN WATER 100 ML IV SCH ×2 (06:57→20:59)
[2021-03-23 07:11] LABS: ALT/SGPT 44 U/L (<40); AST/SGOT 186 U/L (<40); Albumin/Globulin Ratio 0.9 (1.0-2.3); Alkaline Phosphatase 106 U/L (39-117); Bilirubin,Direct 0.4 mg/dL (<0.3); Bilirubin,Total 1.2 mg/dL (0.1-1.0); Blood Urea Nitrogen 12 mg/dL (8-23); Calcium 8.4 mg/dL (8.6-10.4); Carbon Dioxide 27 mmol/L (22-30); Chloride 99 mmol/L (96-108); Globulin 3.3 gm/dL (2.2-3.7); Glomerular Filtration Rate 102; Glucose 104 mg/dL (70-105); Lactate Dehydrogenase 277 U/L (135-225); Phosphorous 2.2 mg/dL (2.5-4.5); Triglycerides 63 mg/dL (<150); Uric Acid 1.8 mg/dL (2.5-8.0)
[2021-03-23] MEDS: METOPROLOL SUCCINATE 25 MG TAB.XL.24H PO SCH (07:30)
[2021-03-23] MEDS: DOCUSATE SODIUM 100 MG CAPSULE PO SCH ×2 (07:30→21:00)
[2021-03-23] MEDS: ASPIRIN 325 MG ENTERIC COATED TABLET PO SCH (07:30)
--- NOTE | 2021-03-23 07:58 | Internal Med Progress Note ---
SUBJECTIVE Subjective Patient information: Note initiated : 03/23/21 at 7:55 am Service Date, if different from initiated Date: [] Patient: Crescencio Yang a 81 y/o M admitted on 03/20/21 for fall. Chief Complaint: [] Interval history: History of present illness: Mr. Yang is a 81 year old M Who presents the ED for weakness after fall and inability to walk and right foot pain. Patient fell about 3 days ago. Right foot swollen and bruised. Labs are unremarkable vital signs are unremarkable. Patient unsafe for home. Work-up in ED revealed fracture of the right toes with surrounding edema. 03/21 No overnight event or new complaints. Worked with physical therapy this morning. 03/22 A. fib RVR last night. IV Lopressor given several times in the night with improved heart rate. No new complaints this morning. We will increase his Toprol. 03/23 Patient did not need to go on amiodarone drip last night. Diltiazem drip was stopped at 4. CPK mildly decreased not as much as I would think. In reviewing articles there is a concern for aspirin causing elevation of CPK I did discuss with the patient and he was amenable to stopping aspirin and covering his A. fib with anticoagulation. We will change his metoprolol succinate to tartrate to see if we can get a better heart rate control effect Review of Systems: denies headache/fever/chills/nausea/vomiting/chest or abdominal pain/cough/dyspnea/diarrhea. Otherwise see above. Constitutional Vitals: Vital Signs Temp Pulse Resp BP Pulse Ox 98.0 F 98 H 31 H 122/83 97 03/23/21 07:41 03/23/21 07:41 03/23/21 07:41 03/23/21 07:01 03/23/21 07:43 Period Temp Pulse Resp BP Sys/Osorio Pulse Ox Last 24 Hr 97.5 F-99.8 F 70-140 14-31 82-147/58-132 80-98 Intake and Output 03/22/21 03/23/21 03/23/21 21:59 05:59 13:59 Intake Total 1193 667 Output Total 375 50 Balance 818 617 Weight 139.979 kg Intake & Output: Intake & Output 03/22/21 03/23/21 03/23/21 21:59 05:59 13:59 Intake Total 1193 667 Output Total 375 50 Balance 818 617 Weight 139.979 kg Intake: IV 1073 267 Sodium Chloride 0.9% 250 ml @ 225 20 mls/hr IV .[id number] [facility] Rx#: [id number] Cardizem 125 mg In Dextrose 5% 21 42 in Water 100 ml @ 5 MG/HR 5 mls /hr IV Q12H [facility] Rx#:[id number] Magnesium Sulfate 8.12 Meq In 52 Dextrose 5% in Water 50 ml @ 52 mls/hr IV ONCE ONE Rx#: [id number] Sodium Bicarbonate Vial 150 Meq 1000 In Water 850 ml @ 125 mls/hr IV Q10H [facility] Rx#:[id number] Oral 120 400 Output: Void Amount 375 50 Other: Meal Dinner Percent of Meal Consumed 50% Urine Appearance Clear Clear Urine Color Dark Jessica Light Jessica Exam: General: Alert, Awake, No acute Distress, obese Eyes/N/T: EOMI, Head/Neck: neck supple, CV: irreg irreg, No murmurs, Pulm: Clear b/l, no wheezing/rhonchi/rales Abd: soft, nontender, +BS x4 Ext: no clubbing/cyanosis, right foot edema/bruising Neuro: Alert, no focal deficits, moves all extremities, Skin: warm/dry OBJ DATA Labs CBC & Chem 7: 03/20/21 16:00 03/23/21 05:27 Labs: Abnormal Lab Results 03/23/21 03/23/21 03/22/21 05:27 05:27 12:07 RBC MCV MCH Plt Count Lymphocytes % Platelet Estimate RBC Morphology Macrocytosis Creatinine 0.5 L Glucose Uric Acid 1.8 L Calcium 8.4 L Phosphorus 2.2 L Total Bilirubin 1.2 H Direct Bilirubin 0.4 H AST 186 H ALT 44 H Lactate Dehydrogenase 277 H Total Creatine Kinase 3376 H Albumin 3.0 L Albumin/Globulin Ratio 0.9 L Urine Glucose (UA) Urine Ketones 20 A Urine Urobilinogen 4.0 A Urine Mucus Mod A 03/22/21 03/22/21 03/22/21 07:58 07:58 00:30 RBC MCV MCH Plt Count Lymphocytes % Platelet Estimate RBC Morphology Macrocytosis Creatinine Glucose Uric Acid 2.3 L Calcium Phosphorus Total Bilirubin 1.4 H Direct Bilirubin 0.5 H AST 202 H ALT 44 H Lactate Dehydrogenase 253 H Total Creatine Kinase 3758 H Albumin Albumin/Globulin Ratio Urine Glucose (UA) >=500 A Urine Ketones 20 A Urine Urobilinogen 4.0 A Urine Mucus 03/20/21 03/20/21 17:56 16:00 RBC 3.98 L MCV 107.8 H MCH 35.9 H Plt Count 133 L Lymphocytes % 14 L Platelet Estimate Decreased A RBC Morphology Abnormal A Macrocytosis 1+ A Creatinine Glucose 140 H Uric Acid Calcium Phosphorus Total Bilirubin Direct Bilirubin AST ALT Lactate Dehydrogenase Total Creatine Kinase Albumin Albumin/Globulin Ratio Urine Glucose (UA) Urine Ketones Urine Urobilinogen Urine Mucus Meds: Medications Aspirin (Aspirin 325 Mg Enteric Coated Tablet) 975 mg PO TID [facility] Last Admin: 03/23/21 07:30 Dose: 975 mg Documented by: Chlordiazepoxide HCl (Chlordiazepoxide 25 Mg Capsule) 25 mg PO Q4HP PRN PRN Reason: Alcohol Withdrawal Docusate Sodium (Docusate Sodium 100 Mg Capsule) 100 mg PO BID [facility] Last Admin: 03/23/21 07:30 Dose: 100 mg Documented by: Diltiazem HCl 125 mg/ Dextrose 125 mls @ 5 mls/hr IV Q12H [facility]; Protocol Last Admin: 03/23/21 06:57 Dose: Not Given Documented by: Sodium Chloride (Sodium Chloride 0.9%) 250 mls @ 20 mls/hr IV .[id number] [facility] Last Admin: 03/23/21 05:59 Dose: 20 mls/hr Documented by: Acetaminophen (Ofirmev) 650 mg in 65 mls @ 130 mls/hr IV Q6HP PRN; Protocol PRN Reason: PAIN/FEVER > 101 Magnesium Sulfate (Magnesium Sulfate) 2 gm in 50 mls @ 50 mls/hr IV UD PRN PRN Reason: Magnesium </= 1.6 Potassium Chloride 40 meq/ (Dextrose) 520 mls @ 130 mls/hr IV UD PRN PRN Reason: Potassium < 3 Lorazepam (Lorazepam 2 Mg/Ml Vial) 0 mg IV Q4HP PRN; Protocol PRN Reason: Alcohol Withdrawal Last Admin: 03/22/21 20:10 Dose: 1 mg Documented by: Metoprolol Succinate (Metoprolol Succinate 25 Mg Tab.Xl.24h) 25 mg PO BID [facility] Last Admin: 03/23/21 07:30 Dose: 25 mg Documented by: Metoprolol Tartrate (Metoprolol Tartrate 5 Mg/5 Ml Vial) 5 mg IV Q2HP PRN PRN Reason: Tachyarrhythmias Ondansetron HCl (Ondansetron 4 Mg/2 Ml Vial) 4 mg IV Q4HP PRN PRN Reason: Nausea And Vomiting Oxycodone HCl (Oxycodone Hcl 5 Mg Tablet) 0 mg PO Q4HP PRN; Protocol PRN Reason: Per Pain Protocol Polyethylene Glycol (Polyethylene Glycol 3350 17 Gm Packet) 17 gm PO DAILYP PRN PRN Reason: Constipation Potassium Chloride (Potassium Chloride 20 Meq Tablet) 40 meq PO UD PRN PRN Reason: Potssium is 3-3.5 Potassium Chloride (Potassium Chloride 20 Meq Tablet) 40 meq PO UD PRN PRN Reason: Potassium < 3 Senna (Sennosides 1 Tablet) 2 tab PO DAILYP PRN PRN Reason: Constipation Sodium Chloride (0.9 % Sodium Chloride 10 Ml Syringe) 10 ml IV Q8 [facility] Last Admin: 03/23/21 05:34 Dose: 10 ml Documented by: Tramadol HCl (Tramadol 50 Mg Tablet) 50 mg PO Q6HP PRN; Protocol PRN Reason: Pain A/P Narrative A/P Narrative: A: *Rhabo: 2/2 fall and tissue injury, but has been taking high-dose aspirin as well -mildly improved from yesterday but not as much as expected (2/2 ?aspirin) *Fall/inability to walk/multiple toe fractures of the right foot: *Osteoarthritis: *Spinal stenosis w/neuropathy: *Afib w/rvr: Not on anticoagulation by choice but does take multiple aspirin daily. on BB -possible irritability from etoh cessation since admit, pt typically as 3 beers/night *macrocytosis: b12/folate ok P: -s/p IVF -check UA pH -d/c ASA, start anticoagulation -pt/to -CM for placement -boot to right foot -pain control -wound care, right foot -cont bid BB, amio if necessary -ppx: lovenox bid Time Spent With Patient Time: Total time spent is greater than 50% in coordination of care (as documented) at patient's floor/unit and/or counseling patient: QUALITY VTE Deep Vein Thrombosis/Pulmonary Embolism Present on Admission: No
[2021-03-23] MEDS ORDERED: METOPROLOL TARTRATE 25 MG TABLET PO ONE (10:03)
[2021-03-23] MEDS ORDERED: LORazepam 2 MG/ML VIAL IV PRN (10:08)
[2021-03-23] MEDS: ENOXAPARIN 120 MG/0.8 ML SYRINGE SQ SCH ×2 (10:20→21:01)
--- NOTE | 2021-03-23 12:43 | General Surgery Progress Note ---
SUBJECTIVE Subjective Patient information: Note initiated : 03/23/21 at 12:33 pm Service Date, if different from initiated Date: [] Patient: Crescencio Yang 81 y/o M admitted on 03/20/21 for fall. Chief Complaint: [] Additional PMFSH (Level 3 Only): Patient seen in ICU 120/C. Transferred from Med Surg to ICU today for A fib / arrhythmia. Started on Ca channel blockers. Patient is comfortable and asymptomatic. Examined his RIGHT foot and toe wounds. Constitutional Vitals: Vital Signs Temp Pulse Resp BP Pulse Ox 98.0 F 98 H 29 H 117/74 94 03/23/21 08:01 03/23/21 10:01 03/23/21 10:01 03/23/21 10:01 03/23/21 10:01 Period Temp Pulse Resp BP Sys/Osorio Pulse Ox Last 24 Hr 98.0 F-99.8 F 70-140 14-31 82-147/58-132 80-98 Intake and Output 03/22/21 03/23/21 03/23/21 21:59 05:59 13:59 Intake Total 1528 428 1675 Output Total 375 50 250 Balance 818 617 750 Weight 308 lb 9.6 oz Intake & Output: Intake & Output 03/22/21 03/23/21 03/23/21 21:59 05:59 13:59 Intake Total 3662 509 1518 Output Total 375 50 250 Balance 818 617 750 Weight 308 lb 9.6 oz Intake: IV 3038 297 2224 Sodium Chloride 0.9% 1,000 ml @ 1000 84 mls/hr IV .[id number] [facility] Rx#: [id number] Sodium Chloride 0.9% 250 ml @ 225 20 mls/hr IV .[id number] [facility] Rx#: [id number] Cardizem 125 mg In Dextrose 5% 21 42 in Water 100 ml @ 5 MG/HR 5 mls /hr IV Q12H [facility] Rx#:[id number] Magnesium Sulfate 8.12 Meq In 52 Dextrose 5% in Water 50 ml @ 52 mls/hr IV ONCE ONE Rx#: [id number] Sodium Bicarbonate Vial 150 Meq 1000 In Water 850 ml @ 125 mls/hr IV Q10H [facility] Rx#:[id number] Oral 120 400 Output: Void Amount 375 50 250 Other: Meal Dinner Percent of Meal Consumed 50% Urine Appearance Clear Clear Urine Color Dark Jessica Light Jessica [place] General appearance: cooperative and no acute distress Exam: Resting comfortably. Talking in full sentences. Denies any acute constitutional or systemic complaints. L/E: RIGHT lower extremity: LYMPHEDEMA extends from knee to dorsal foot and toes. Purple discoloration between toes and Stage 1 epidermal linear skin ulcer under 5th toe skin crease. All toes are PWD and mobile. A/P Narrative A/P Narrative: Assessment: Transferred to ICU for hemodynamic and cardiac monitoring. Started on Calcium channel blockers in addition to BB and ASA. Lovenox as scheduled. RIGHT foot lymphedema is stable. TOES are pink, dry and mobile. Hair line closed fractures of proximal phalanges 1-5. Plan: Continue present treatment. Betadine swab under toes and in between toes. Dry gauze between toes and Kerlix bandage. Elevation of RIGHT foot and heel. NWB on Right foot. Time Spent With Patient Time: Total time spent is greater than 50% in coordination of care (as documented) at patient's floor/unit and/or counseling patient: Total time spent with greater than 50% in coordination of care (as documented) at patient's floor/unit and/or counseling patient:: 15 - 24 minutes
[2021-03-23 14:50] LABS: Appearance,Urine CLEAR (Clear); Bilirubin,Urine Negative (Negative); Color,Urine AMBER; Culture Indicated,Urine No; Glucose,Urine (UA) Negative (Negative); Ketones,Urine 20 mg/dL (Negative); Leukocyte Esterase,Urine Negative /ug (Negative); Mucus,Urine FEW /hpf; Nitrate,Urine Negative (Negative); Protein,Urine Negative (Negative); Specific Gravity,Urine 1.025 (1.000-1.035); Urine Blood Negative (Negative); Urine RBC 1 /hpf (0-3); Urine Squamous Epithelial Cell 0 /hpf (0-4); Urine WBC < 1 /hpf (0-4)
[2021-03-23] MEDS: ACETAMINOPHEN 650 MG/65 ML BAG IV PRN (16:26)
[2021-03-23] MEDS: METOPROLOL TARTRATE 25 MG TABLET PO SCH (21:00)
[2021-03-24] MEDS: oxyCODONE HCL 5 MG TABLET PO PRN ×3 (01:33→22:22)
[2021-03-24] MEDS: 0.9 % SODIUM CHLORIDE 10 ML SYRINGE IV SCH ×3 (05:44→21:08)
[2021-03-24] MEDS: DILTIAZEM 125 MG in DEXTROSE 5% IN WATER 100 ML IV SCH (06:56)
[2021-03-24] MEDS: 0.9 % SODIUM CHLORIDE 250 ML IV SCH (07:15)
[2021-03-24] MEDS: METOPROLOL TARTRATE 25 MG TABLET PO SCH ×4 (07:18→21:15)
[2021-03-24] MEDS: ENOXAPARIN 120 MG/0.8 ML SYRINGE SQ SCH ×2 (07:18→21:05)
[2021-03-24] MEDS: DOCUSATE SODIUM 100 MG CAPSULE PO SCH ×2 (07:18→21:05)
--- NOTE | 2021-03-24 07:19 | Internal Med Progress Note ---
SUBJECTIVE Subjective Patient information: Note initiated : 03/24/21 at 7:16 am Service Date, if different from initiated Date: [] Patient: Crescencio Yang a 81 y/o M admitted on 03/20/21 for fall. Chief Complaint: [] Interval history: History of present illness: Mr. Yang is a 81 year old M Who presents the ED for weakness after fall and inability to walk and right foot pain. Patient fell about 3 days ago. Right foot swollen and bruised. Labs are unremarkable vital signs are unremarkable. Patient unsafe for home. Work-up in ED revealed fracture of the right toes with surrounding edema. 03/21 No overnight event or new complaints. Worked with physical therapy this morning. 03/22 A. fib RVR last night. IV Lopressor given several times in the night with improved heart rate. No new complaints this morning. We will increase his Toprol. 03/23 Patient did not need to go on amiodarone drip last night. Diltiazem drip was stopped at 4. CPK mildly decreased not as much as I would think. In reviewing articles there is a concern for aspirin causing elevation of CPK I did discuss with the patient and he was amenable to stopping aspirin and covering his A. fib with anticoagulation. We will change his metoprolol succinate to tartrate to see if we can get a better heart rate control effect 03/24 No new complaints. Heart rate improved overall but not optimal. We will start IV amiodarone loading dose and then transition to oral. CPK much improved today. Review of Systems: denies headache/fever/chills/nausea/vomiting/chest or abdominal pain/cough/dyspnea/diarrhea. Otherwise see above. Constitutional Vitals: Vital Signs Temp Pulse Resp BP Pulse Ox 97.9 F 93 H 16 110/67 98 03/24/21 04:01 03/24/21 06:00 03/24/21 06:00 03/24/21 06:00 03/24/21 06:00 Period Temp Pulse Resp BP Sys/Osorio Pulse Ox Last 24 Hr 97.9 F-98.7 F 79-120 16-33 101-137/48-96 84-100 Intake and Output 03/23/21 03/24/21 03/24/21 21:59 05:59 13:59 Intake Total 795 400 Output Total 325 200 Balance 470 200 Weight 139.207 kg Intake & Output: Intake & Output 03/23/21 03/24/21 03/24/21 21:59 05:59 13:59 Intake Total 795 400 Output Total 325 200 Balance 470 200 Weight 139.207 kg Intake: IV 315 Sodium Chloride 0.9% 250 ml @ 250 20 mls/hr IV .[id number] [facility] Rx#: [id number] Oral 480 400 Output: Void Amount 325 200 Other: Meal Dinner Percent of Meal Consumed 100% Urine Appearance Clear Clear Urine Color Light Jessica Light Jessica Stool Size Moderate Stool Color Brown Stool Consistency Formed # Bowel Movements 1 Exam: General: Alert, Awake, No acute Distress, obese Eyes/N/T: EOMI, Head/Neck: neck supple, CV: irreg irreg, No murmurs, Pulm: Clear b/l, no wheezing/rhonchi/rales Abd: soft, nontender, +BS x4 Ext: no clubbing/cyanosis, right foot edema/bruising Neuro: Alert, no focal deficits, moves all extremities, Skin: warm/dry OBJ DATA Labs CBC & Chem 7: 03/24/21 07:35 03/24/21 07:34 Labs: Abnormal Lab Results 03/23/21 03/23/21 03/23/21 11:56 05:27 05:27 Creatinine 0.5 L Uric Acid 1.8 L Calcium 8.4 L Phosphorus 2.2 L Total Bilirubin 1.2 H Direct Bilirubin 0.4 H AST 186 H ALT 44 H Lactate Dehydrogenase 277 H Total Creatine Kinase 3376 H Albumin 3.0 L Albumin/Globulin Ratio 0.9 L Urine Glucose (UA) Urine Ketones 20 A Urine Urobilinogen 4.0 A Urine Mucus Few A 03/22/21 03/22/21 03/22/21 12:07 07:58 07:58 Creatinine Uric Acid 2.3 L Calcium Phosphorus Total Bilirubin 1.4 H Direct Bilirubin 0.5 H AST 202 H ALT 44 H Lactate Dehydrogenase 253 H Total Creatine Kinase 3758 H Albumin Albumin/Globulin Ratio Urine Glucose (UA) Urine Ketones 20 A Urine Urobilinogen 4.0 A Urine Mucus Mod A 03/22/21 00:30 Creatinine Uric Acid Calcium Phosphorus Total Bilirubin Direct Bilirubin AST ALT Lactate Dehydrogenase Total Creatine Kinase Albumin Albumin/Globulin Ratio Urine Glucose (UA) >=500 A Urine Ketones 20 A Urine Urobilinogen 4.0 A Urine Mucus Meds: Medications Chlordiazepoxide HCl (Chlordiazepoxide 25 Mg Capsule) 25 mg PO Q4HP PRN PRN Reason: Alcohol Withdrawal Docusate Sodium (Docusate Sodium 100 Mg Capsule) 100 mg PO BID [facility] Last Admin: 03/23/21 21:00 Dose: 100 mg Documented by: Enoxaparin Sodium (Enoxaparin 120 Mg/0.8 Ml Syringe) 120 mg SQ BID [facility] Last Admin: 03/23/21 21:01 Dose: 120 mg Documented by: Diltiazem HCl 125 mg/ Dextrose 125 mls @ 5 mls/hr IV Q12H [facility]; Protocol Last Admin: 03/24/21 06:56 Dose: Not Given Documented by: Sodium Chloride (Sodium Chloride 0.9%) 250 mls @ 20 mls/hr IV .[id number] [facility] Last Admin: 03/24/21 07:15 Dose: Not Given Documented by: Acetaminophen (Ofirmev) 650 mg in 65 mls @ 130 mls/hr IV Q6HP PRN; Protocol PRN Reason: PAIN/FEVER > 101 Last Infusion: 03/23/21 17:45 Dose: Infused Documented by: Magnesium Sulfate (Magnesium Sulfate) 2 gm in 50 mls @ 50 mls/hr IV UD PRN PRN Reason: Magnesium </= 1.6 Potassium Chloride 40 meq/ (Dextrose) 520 mls @ 130 mls/hr IV UD PRN PRN Reason: Potassium < 3 Lorazepam (Lorazepam 2 Mg/Ml Vial) 0 mg IV Q4HP PRN; Protocol PRN Reason: Alcohol Withdrawal Last Admin: 03/22/21 20:10 Dose: 1 mg Documented by: Lorazepam (Lorazepam 2 Mg/Ml Vial) 0.5 mg IV Q4-6HP PRN PRN Reason: Anxiety/Sedation/etoh withdraw Metoprolol Tartrate (Metoprolol Tartrate 5 Mg/5 Ml Vial) 5 mg IV Q2HP PRN PRN Reason: Tachyarrhythmias Last Admin: 03/23/21 18:10 Dose: 5 mg Documented by: Metoprolol Tartrate (Metoprolol Tartrate 25 Mg Tablet) 25 mg PO BID [facility] Last Admin: 03/23/21 21:00 Dose: 25 mg Documented by: Ondansetron HCl (Ondansetron 4 Mg/2 Ml Vial) 4 mg IV Q4HP PRN PRN Reason: Nausea And Vomiting Oxycodone HCl (Oxycodone Hcl 5 Mg Tablet) 0 mg PO Q4HP PRN; Protocol PRN Reason: Per Pain Protocol Last Admin: 03/24/21 01:33 Dose: 10 mg Documented by: Polyethylene Glycol (Polyethylene Glycol 3350 17 Gm Packet) 17 gm PO DAILYP PRN PRN Reason: Constipation Potassium Chloride (Potassium Chloride 20 Meq Tablet) 40 meq PO UD PRN PRN Reason: Potssium is 3-3.5 Potassium Chloride (Potassium Chloride 20 Meq Tablet) 40 meq PO UD PRN PRN Reason: Potassium < 3 Senna (Sennosides 1 Tablet) 2 tab PO DAILYP PRN PRN Reason: Constipation Sodium Chloride (0.9 % Sodium Chloride 10 Ml Syringe) 10 ml IV Q8 [facility] Last Admin: 03/24/21 05:44 Dose: 10 ml Documented by: Tramadol HCl (Tramadol 50 Mg Tablet) 50 mg PO Q6HP PRN; Protocol PRN Reason: Pain A/P Narrative A/P Narrative: A: *Rhabo: 2/2 fall and tissue injury, but has been taking high-dose aspirin as well -much improved from yesterday - *Fall/inability to walk/multiple toe fractures of the right foot: *Osteoarthritis: *Spinal stenosis w/neuropathy: *Afib w/rvr: Not on anticoagulation by choice but does take multiple aspirin daily. on BB -possible irritability from etoh cessation since admit, pt typically as 3 beers/night *macrocytosis: b12/folate ok P: -amio iv loading to PO, -cont bid lopressor -stopped d/c ASA, started anticoagulation -pt/to -CM for placement -boot to right foot when ambulating -pain control -wound care, right foot -CM for placement -ppx: lovenox bid Time Spent With Patient Time: Total time spent is greater than 50% in coordination of care (as documented) at patient's floor/unit and/or counseling patient: QUALITY VTE Deep Vein Thrombosis/Pulmonary Embolism Present on Admission: No
[2021-03-24] MEDS ORDERED: METOPROLOL TARTRATE 25 MG TABLET PO ONE (07:35)
[2021-03-24 08:18] LABS: Basophils # (Auto) 0.05 K/mcL (0.00-0.20); Basophils % (Auto) 0.6 % (0.0-2.0); Eosinophils # (Auto) 0.18 K/mcL (0.00-0.70); Eosinophils % (Auto) 2.3 % (0.0-7.0); Hematocrit 39.1 % (41.0-55.0); Hemoglobin 12.8 g/dL (13.5-16.5); Lymphocytes # (Auto) 1.29 K/mcL (1.50-4.80); Lymphocytes % (Auto) 16.2 % (15.0-49.0); Mean Cell Volume 107.7 fL (80.0-100.0); Mean Corpuscular HGB Conc 32.7 g/dL (31.0-36.0); Mean Platelet Volume 9.4 fL (7.4-10.4); Monocytes # (Auto) 0.87 K/mcL (0.10-0.90); Monocytes % (Auto) 10.9 % (1.0-12.0); Platelet Count 150 K/mcL (140-440); RBC 3.63 M/mcL (4.50-5.90); Red Cell Distribution Width 12.2 % (11.5-14.5)
[2021-03-24 08:32] LABS: Creatine Kinase 1369 U/L (24-195)
[2021-03-24 08:33] LABS: ALT/SGPT 39 U/L (<40); AST/SGOT 109 U/L (<40); Albumin 2.8 gm/dL (3.2-5.2); Albumin/Globulin Ratio 0.8 (1.0-2.3); Alkaline Phosphatase 102 U/L (39-117); Bilirubin,Direct 0.3 mg/dL (<0.3); Bilirubin,Total 0.9 mg/dL (0.1-1.0); Blood Urea Nitrogen 10 mg/dL (8-23); Calcium 8.5 mg/dL (8.6-10.4); Carbon Dioxide 29 mmol/L (22-30); Chloride 99 mmol/L (96-108); Globulin 3.4 gm/dL (2.2-3.7); Glomerular Filtration Rate 94; Glucose 101 mg/dL (70-105); Lactate Dehydrogenase 242 U/L (135-225); Phosphorous 2.6 mg/dL (2.5-4.5); Triglycerides 62 mg/dL (<150); Uric Acid 1.9 mg/dL (2.5-8.0)
[2021-03-24] MEDS ORDERED: AMIODARONE 150 MG in DEXTROSE 5% IN WATER 50 ML IV ONE (09:30)
[2021-03-24] MEDS: AMIODARONE 360 MG in PREMIX 1 BAG IV SCH ×3 (10:21→16:32)
[2021-03-24] MEDS: ACETAMINOPHEN 650 MG/65 ML BAG IV PRN ×2 (13:37→21:05)
--- NOTE | 2021-03-24 13:40 | General Surgery Progress Note ---
SUBJECTIVE Subjective Patient information: Note initiated : 03/24/21 at 1:35 pm Service Date, if different from initiated Date: [] Patient: Crescencio Yang 81 y/o M admitted on 03/20/21 for fall. Chief Complaint: [] Additional PMFSH (Level 3 Only): No interval developments. Patient had an uneventful night. Progress reviewed with Dr. Najera, Hospitalist and Rusty RN. Constitutional Vitals: Vital Signs Temp Pulse Resp BP Pulse Ox 98.6 F 85 18 132/54 96 03/24/21 12:02 03/24/21 12:32 03/24/21 12:32 03/24/21 12:02 03/24/21 12:32 Period Temp Pulse Resp BP Sys/Osorio Pulse Ox Last 24 Hr 97.9 F-98.7 F 79-120 16-34 101-132/48-96 84-100 Intake and Output 03/23/21 03/24/21 03/24/21 21:59 05:59 13:59 Intake Total 795 400 293 Output Total 325 200 Balance 470 200 293 Weight 306 lb 14.4 oz Intake & Output: Intake & Output 03/23/21 03/24/21 03/24/21 21:59 05:59 13:59 Intake Total 795 400 293 Output Total 325 200 Balance 470 200 293 Weight 306 lb 14.4 oz Intake: IV 315 53 Sodium Chloride 0.9% 250 ml @ 250 20 mls/hr IV .[id number] [facility] Rx#: [id number] Cordarone 150 mg In Dextrose 5% 53 in Water 50 ml @ 300 mls/hr IV ONCE ONE Rx#:[id number] Oral 480 400 240 Output: Void Amount 325 200 Other: Meal Dinner Breakfast Percent of Meal Consumed 100% 100% Urine Appearance Clear Clear Urine Color Light Jessica Light Jessica Stool Size Moderate Stool Color Brown Stool Consistency Formed # Bowel Movements 1 Exam: No changes clinical examination Right foot toes PWD. Betadine swab to open wound under 5th toe daily A/P Narrative A/P Narrative: Assessment: No interval changes from wound care point of view. Awaits placement and rehab for closed fractures of toes proximal phalanges RIGHT foot. Plan: Continue present treatment. May consult physical therapy for AIR CAST boot to off load all toes and WB for ambulation under supervision. If discharged, f/u at wound care center in ONE week. Time Spent With Patient Time: Total time spent is greater than 50% in coordination of care (as documented) at patient's floor/unit and/or counseling patient: Total time spent with greater than 50% in coordination of care (as documented) at patient's floor/unit and/or counseling patient:: less than 15 minutes
[2021-03-25] MEDS: oxyCODONE HCL 5 MG TABLET PO PRN ×4 (01:45→23:38)
[2021-03-25] MEDS: AMIODARONE 360 MG in PREMIX 1 BAG IV SCH (04:41)
[2021-03-25] MEDS: 0.9 % SODIUM CHLORIDE 10 ML SYRINGE IV SCH ×3 (05:54→21:25)
[2021-03-25 06:32] LABS: Blood Urea Nitrogen 10 mg/dL (8-23); Calcium 7.9 mg/dL (8.6-10.4); Carbon Dioxide 27 mmol/L (22-30); Chloride 98 mmol/L (96-108); Creatine Kinase 723 U/L (24-195); Glomerular Filtration Rate 102; Glucose 98 mg/dL (70-105)
[2021-03-25] MEDS: METOPROLOL TARTRATE 25 MG TABLET PO SCH ×2 (07:43→20:24)
[2021-03-25] MEDS: ENOXAPARIN 120 MG/0.8 ML SYRINGE SQ SCH ×2 (07:44→20:25)
[2021-03-25] MEDS: ACETAMINOPHEN 650 MG/65 ML BAG IV PRN ×2 (07:44→15:40)
[2021-03-25] MEDS: DOCUSATE SODIUM 100 MG CAPSULE PO SCH ×2 (07:44→20:24)
[2021-03-25] MEDS ORDERED: AMIODARONE HCL 200 MG TABLET PO SCH ×2 (08:00→17:30)
--- NOTE | 2021-03-25 12:07 | Internal Med Progress Note ---
SUBJECTIVE Subjective Patient information: Note initiated : 03/25/21 at 12:03 pm Service Date, if different from initiated Date: [] Patient: Crescencio Yang 81 y/o M admitted on 03/20/21 for fall. Chief Complaint: Fall Constitutional Vitals: Vital Signs Temp Pulse Resp BP Pulse Ox 98.8 F 98 H 17 105/68 94 03/25/21 08:01 03/25/21 00:13 03/25/21 10:04 03/25/21 10:02 03/25/21 10:04 Period Temp Pulse Resp BP Sys/Osorio Pulse Ox Last 24 Hr 97.4 F-98.8 F 85-111 17-23 98-119/61-83 81-99 Intake and Output 03/24/21 03/25/21 03/25/21 21:59 05:59 13:59 Intake Total 1595 665 265 Output Total 425 525 150 Balance 1170 140 115 Weight 140.296 kg Intake & Output: Intake & Output 03/24/21 03/25/21 03/25/21 21:59 05:59 13:59 Intake Total 1595 665 265 Output Total 425 525 150 Balance 1170 140 115 Weight 140.296 kg Intake: IV 265 265 265 Nexterone 360 mg In Premix 1 200 200 200 Bag @ 0.5 MG/MIN 16.667 mls/hr IV .Q12H [facility] Rx#:[id number] Oral 1330 400 Output: Void Amount 425 525 150 Other: Meal Dinner Percent of Meal Consumed 75% Feeding Ability Assist with Tray Set Up Urine Appearance Clear Clear Urine Color Light Jessica Light Jessica Dark Yellow Urine Odor Normal # Bowel Movements 0 General appearance: cooperative and no acute distress Head Head exam: Present atraumatic, normal inspection and normocephalic Eye Eye exam: Present EOMI, normal appearance and PERRL Neck Neck exam: Present full ROM and normal inspection Respiratory Respiratory exam: Present normal respiratory exam and CTAB Cardiovascular Cardiovascular exam: Present normal rate and rhythm, irregular rhythm, +S1 and +S2; Absent diastolic murmur and systolic murmur GI/Abdominal GI/Abdominal exam: Present normal bowel sounds and soft; Absent hernia, mass, rebound and tenderness Extremities Exam Extremities exam: Present normal capillary refill, normal inspection and pedal edema (2+. Right foot swelling and bruises due to multiple fracture as above); Absent calf tenderness and joint swelling Back Exam Back exam: Present full ROM Neurological Exam Neurological exam: Present alert, CN II-XII intact, oriented X3 and reflexes normal Psychiatric Psychiatric exam: Present normal affect and normal mood Skin Skin exam: Present dry, normal color and warm OBJ DATA Labs CBC & Chem 7: 03/24/21 07:35 03/25/21 05:05 Labs: Abnormal Lab Results 03/25/21 03/24/21 03/24/21 05:05 07:35 07:34 RBC 3.63 L Hgb 12.8 L Hct 39.1 L MCV 107.7 H MCH 35.3 H Lymph # (Auto) 1.29 L Sodium 132 L Anion Gap 7.0 L 6.0 L Creatinine 0.5 L 0.6 L Uric Acid 1.9 L Calcium 7.9 L 8.5 L Phosphorus Total Bilirubin Direct Bilirubin 0.3 H AST 109 H ALT Lactate Dehydrogenase 242 H Total Creatine Kinase 723 H 1369 H Albumin 2.8 L Albumin/Globulin Ratio 0.8 L Urine Glucose (UA) Urine Ketones Urine Urobilinogen Urine Mucus 03/23/21 03/23/21 03/23/21 11:56 05:27 05:27 RBC Hgb Hct MCV MCH Lymph # (Auto) Sodium Anion Gap Creatinine 0.5 L Uric Acid 1.8 L Calcium 8.4 L Phosphorus 2.2 L Total Bilirubin 1.2 H Direct Bilirubin 0.4 H AST 186 H ALT 44 H Lactate Dehydrogenase 277 H Total Creatine Kinase 3376 H Albumin 3.0 L Albumin/Globulin Ratio 0.9 L Urine Glucose (UA) Urine Ketones 20 A Urine Urobilinogen 4.0 A Urine Mucus Few A 03/22/21 03/22/21 12:07 00:30 RBC Hgb Hct MCV MCH Lymph # (Auto) Sodium Anion Gap Creatinine Uric Acid Calcium Phosphorus Total Bilirubin Direct Bilirubin AST ALT Lactate Dehydrogenase Total Creatine Kinase Albumin Albumin/Globulin Ratio Urine Glucose (UA) >=500 A Urine Ketones 20 A 20 A Urine Urobilinogen 4.0 A 4.0 A Urine Mucus Mod A Meds: Medications Amiodarone HCl ([facility]one Hcl 200 Mg Tablet) [facility] Last Admin: 03/25/21 10:31 Dose: 400 mg Documented by: Aspirin (Aspirin 325 Mg Enteric Coated Tablet) 325 mg PO TID [facility] Chlordiazepoxide HCl (Chlordiazepoxide 25 Mg Capsule) 25 mg PO Q4HP PRN PRN Reason: Alcohol Withdrawal Docusate Sodium (Docusate Sodium 100 Mg Capsule) 100 mg PO BID [facility] Last Admin: 03/25/21 07:44 Dose: 100 mg Documented by: Acetaminophen (Ofirmev) 650 mg in 65 mls @ 130 mls/hr IV Q6HP PRN; Protocol PRN Reason: PAIN/FEVER > 101 Last Infusion: 03/25/21 08:42 Dose: Infused Documented by: Magnesium Sulfate (Magnesium Sulfate) 2 gm in 50 mls @ 50 mls/hr IV UD PRN PRN Reason: Magnesium </= 1.6 Potassium Chloride 40 meq/ (Dextrose) 520 mls @ 130 mls/hr IV UD PRN PRN Reason: Potassium < 3 Lorazepam (Lorazepam 2 Mg/Ml Vial) 0 mg IV Q4HP PRN; Protocol PRN Reason: Alcohol Withdrawal Last Admin: 03/22/21 20:10 Dose: 1 mg Documented by: Lorazepam (Lorazepam 2 Mg/Ml Vial) 0.5 mg IV Q4-6HP PRN PRN Reason: Anxiety/Sedation/etoh withdraw Last Admin: 03/25/21 03:47 Dose: 0.5 mg Documented by: Metoprolol Tartrate (Metoprolol Tartrate 5 Mg/5 Ml Vial) 5 mg IV Q2HP PRN PRN Reason: Tachyarrhythmias Last Admin: 03/23/21 18:10 Dose: 5 mg Documented by: Metoprolol Tartrate (Metoprolol Tartrate 25 Mg Tablet) 37.5 mg PO BID [facility] Last Admin: 03/25/21 07:43 Dose: 37.5 mg Documented by: Ondansetron HCl (Ondansetron 4 Mg/2 Ml Vial) 4 mg IV Q4HP PRN PRN Reason: Nausea And Vomiting Oxycodone HCl (Oxycodone Hcl 5 Mg Tablet) 0 mg PO Q4HP PRN; Protocol PRN Reason: Per Pain Protocol Last Admin: 03/25/21 07:43 Dose: 10 mg Documented by: Polyethylene Glycol (Polyethylene Glycol 3350 17 Gm Packet) 17 gm PO DAILYP PRN PRN Reason: Constipation Potassium Chloride (Potassium Chloride 20 Meq Tablet) 40 meq PO UD PRN PRN Reason: Potssium is 3-3.5 Potassium Chloride (Potassium Chloride 20 Meq Tablet) 40 meq PO UD PRN PRN Reason: Potassium < 3 Senna (Sennosides 1 Tablet) 2 tab PO DAILYP PRN PRN Reason: Constipation Sodium Chloride (0.9 % Sodium Chloride 10 Ml Syringe) 10 ml IV Q8 [facility] Last Admin: 03/25/21 05:54 Dose: 10 ml Documented by: A/P Narrative A/P Narrative: 81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 #Rhabdomyolysis: 2/2 fall and tissue injury, but has been taking high-dose aspirin as well - CPK peaked at 3758, trending down. Renal function remains normal # Fall/inability to walk/multiple toe fractures of the right foot - CT lower extremity: Nondisplaced spiral fracture - first proximal phalanx. Nondisplaced hairline fracture - second proximal phalanx. Minimally displaced transverse fracture fifth proximal phalanx base. Cortical step-off of the third and fourth proximal phalanges likely represent fractures. They're better seen on plain film. No evidence of acute fracture and the remainder of the foot, ankle, tibia or fibula. - Cont Pain control. - Evaluated by Surgery and cont Boot with ambulation. OP Ortho followup #Chronic atrial fibrillation now with rapid ventricular rate. - On Amnio drip. Change to oral amiodarone discontinued drip. Dc Full dose lonveox per pt's request. - Continue metoprolol 25 daily. Patient refused full anticoagulation. He rather takes aspirin 3 times daily. 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 He refused Coumadin/Eliquis/Xarelto and would like to take Ecotrin 81 mg 3 tablets 3 times a day. Patient is aware of risk of aspirin toxicity and side effects. # Osteoarthritis: # Spinal stenosis w/neuropathy: # macrocytosis: b12/folate ok -wound care, right foot -CM for placement DVT PPX. ASA as above. Code. full Dispo. SNF likely in am. Total ICU time stpent 37 mins. Plan of care discussed with patient and ICU staff Time Spent With Patient Time: Total time spent is greater than 50% in coordination of care (as documented) at patient's floor/unit and/or counseling patient: QUALITY VTE Deep Vein Thrombosis/Pulmonary Embolism Present on Admission: No
[2021-03-25] MEDS ORDERED: POLYETHYLENE GLYCOL 3350 17 GM PACKET PO PRN (12:29)
[2021-03-25] MEDS ORDERED: ONDANSETRON 4 MG/2 ML VIAL IV PRN (12:29)
[2021-03-25] MEDS ORDERED: SENNOSIDES 1 TABLET PO PRN (12:29)
[2021-03-25] MEDS ORDERED: MAGNESIUM SULFATE 2 GM/50 ML BAG IV PRN (12:29)
[2021-03-25] MEDS ORDERED: POTASSIUM CHLORIDE 20 MEQ TABLET PO PRN ×2 (12:29)
[2021-03-25] MEDS ORDERED: IOPAMIDOL 100 ML BOTTLE IV ONE (12:29)
[2021-03-25] MEDS ORDERED: POTASSIUM CHLORIDE 40 MEQ in DEXTROSE 5% IN WATER 500 ML IV PRN (12:29)
[2021-03-25] MEDS ORDERED: chlordiazePOXIDE 25 MG CAPSULE PO PRN (12:29)
[2021-03-25] MEDS ORDERED: LORazepam 2 MG/ML VIAL IV PRN ×2 (12:29)
[2021-03-25] MEDS ORDERED: ASPIRIN 325 MG ENTERIC COATED TABLET PO SCH ×2 (15:00)
[2021-03-25] MEDS: METOPROLOL TARTRATE 5 MG/5 ML VIAL IV PRN ×2 (15:39→18:51)
--- NOTE | 2021-03-25 15:42 | General Surgery Progress Note ---
SUBJECTIVE Subjective Patient information: Note initiated : 03/25/21 at 3:37 pm Service Date, if different from initiated Date: [] Patient: Crescencio Yang 81 y/o M admitted on 03/20/21 for fall. Chief Complaint: [] Additional PMFSH (Level 3 Only): No new symptoms or complaints. Had an uneventful night. Constitutional Vitals: Vital Signs Temp Pulse Resp BP Pulse Ox 98.3 F 98 H 24 H 129/94 97 03/25/21 12:00 03/25/21 00:13 03/25/21 14:21 03/25/21 13:28 03/25/21 13:28 Period Temp Pulse Resp BP Sys/Osorio Pulse Ox Last 24 Hr 97.4 F-98.8 F 93-111 17-24 98-129/61-94 81-99 Intake and Output 03/25/21 03/25/21 03/25/21 05:59 13:59 21:59 Intake Total 665 265 200 Output Total 525 150 Balance 140 115 200 Intake & Output: Intake & Output 03/25/21 03/25/21 03/25/21 05:59 13:59 21:59 Intake Total 665 265 200 Output Total 525 150 Balance 140 115 200 Intake: IV 265 265 Nexterone 360 mg In Premix 1 200 200 Bag @ 0.5 MG/MIN 16.667 mls/hr IV .Q12H [facility] Rx#:[id number] Oral 400 200 Output: Void Amount 525 150 Other: Urine Appearance Clear Urine Color Light Jessica Dark Yellow Urine Odor Normal # Bowel Movements 0 Exam: No changes [place]ILL[place]. L/E: RIGHT foot resolving ecchymoses fore foot around proximal aspect of toes. No signs of acute infection or inflammation. Awaits high AirCast boot Right leg for ambulation.( Per Physical Therapy ) Awaits Rehab placement. A/P Narrative A/P Narrative: Assessment: Satisfactory progress. Awaits Rehab placement. Plan: Continue present treatment for wounds. Air Cast shoe, Right foot when available. If discharged, f/u at wound care center in 1 week. Time Spent With Patient Time: Total time spent is greater than 50% in coordination of care (as documented) at patient's floor/unit and/or counseling patient: Total time spent with greater than 50% in coordination of care (as documented) at patient's floor/unit and/or counseling patient:: 15 - 24 minutes
[2021-03-25] MEDS: AMIODARONE HCL 200 MG TABLET PO SCH (16:30)
[2021-03-25] MEDS ORDERED: METOPROLOL TARTRATE 25 MG TABLET PO SCH (21:00)
[2021-03-26] MEDS: ACETAMINOPHEN 650 MG/65 ML BAG IV PRN ×2 (01:37→15:15)
[2021-03-26] MEDS: 0.9 % SODIUM CHLORIDE 10 ML SYRINGE IV SCH ×3 (05:33→21:04)
--- NOTE | 2021-03-26 09:25 | General Surgery Progress Note ---
SUBJECTIVE Subjective Patient information: Note initiated : 03/26/21 at 9:17 am Service Date, if different from initiated Date: [] Patient: Crescencio Yang 81 y/o M admitted on 03/20/21 for fall. Chief Complaint: [] Additional PMFSH (Level 3 Only): No new symptoms and NO interval changes. Out of ICU to Med Surg floor. Unable to stand and bear weight on RIGHT foot. Constitutional Vitals: Vital Signs Temp Pulse Resp BP Pulse Ox 97.8 F 103 H 21 129/79 95 03/26/21 08:02 03/26/21 08:06 03/26/21 08:06 03/26/21 08:02 03/26/21 08:06 Period Temp Pulse Resp BP Sys/Osorio Pulse Ox Last 24 Hr 97.1 F-98.3 F 78-116 11-27 101-129/64-94 88-97 Intake and Output 03/25/21 03/26/21 03/26/21 21:59 05:59 13:59 Intake Total 465 265 Output Total 445 375 Balance 20 -110 Weight 302 lb 6.4 oz Intake & Output: Intake & Output 03/25/21 03/26/21 03/26/21 21:59 05:59 13:59 Intake Total 465 265 Output Total 445 375 Balance 20 -110 Weight 302 lb 6.4 oz Intake: IV 65 65 Oral 400 200 Output: Void Amount 445 375 Other: Meal Dinner Percent of Meal Consumed 75% Urine Appearance Clear Clear Urine Color Light Jessica Light Jessica Exam: AVSS. No changes CAMILLA. L/E: Right foot bruises at toe bases and on plantar surface have improved. Patient is unable to stand or bear weight on Right foot. A/P Narrative A/P Narrative: Assessment: Patient seen with Gay GREWAL, In Patient wound care nurse. Patient NEEDS rehab and therapy to prevent deconditioning. ?? Overhead trapeze attached to his bed to improve upper body mobility. Expect 6-8 weeks for fractures to fully heal , Plan: Conservative management. Notify wound care center, if discharged or transferred to a Rehab facility. Nothing more to add at this time. See again PRN, while he is in hospital Time Spent With Patient Time: Total time spent is greater than 50% in coordination of care (as documented) at patient's floor/unit and/or counseling patient: Total time spent with greater than 50% in coordination of care (as documented) at patient's floor/unit and/or counseling patient:: 15 - 24 minutes
[2021-03-26] MEDS: AMIODARONE HCL 200 MG TABLET PO SCH ×2 (09:47→15:51)
[2021-03-26] MEDS: DOCUSATE SODIUM 100 MG CAPSULE PO SCH ×2 (09:47→21:03)
[2021-03-26] MEDS: METOPROLOL TARTRATE 25 MG TABLET PO SCH ×4 (09:48→22:30)
[2021-03-26] MEDS: ENOXAPARIN 120 MG/0.8 ML SYRINGE SQ SCH ×2 (11:50→21:03)
--- NOTE | 2021-03-26 11:58 | Internal Med Progress Note ---
SUBJECTIVE Subjective Patient information: Note initiated : 03/26/21 at 11:50 am Service Date, if different from initiated Date: [] Patient: Crescencio Yang 81 y/o M admitted on 03/20/21 for fall. Chief Complaint: Fall, Leg pain Interval history: Pt still c/p leg pain. Seems comfortable. No Cp,SOB,N/V. HR 90-110. No fever, chills. Constitutional Vitals: Vital Signs Temp Pulse Resp BP Pulse Ox 97.8 F 103 H 21 129/79 95 03/26/21 08:02 03/26/21 08:06 03/26/21 08:06 03/26/21 08:02 03/26/21 08:06 Period Temp Pulse Resp BP Sys/Osorio Pulse Ox Last 24 Hr 97.1 F-98.3 F 78-116 11-27 101-129/64-94 88-97 Intake and Output 03/25/21 03/26/21 03/26/21 21:59 05:59 13:59 Intake Total 465 265 Output Total 445 375 Balance 20 -110 Weight 137.166 kg Intake & Output: Intake & Output 03/25/21 03/26/21 03/26/21 21:59 05:59 13:59 Intake Total 465 265 Output Total 445 375 Balance 20 -110 Weight 137.166 kg Intake: IV 65 65 Oral 400 200 Output: Void Amount 445 375 Other: Meal Dinner Percent of Meal Consumed 75% Urine Appearance Clear Clear Urine Color Light Jesscia Light Jessica Exam: General: Alert, Awake, No acute Distress, obese. Comfortable. Eyes/N/T: EOMI, Head/Neck: neck supple, CV: irreg irreg, No murmurs, 2+ Leg edema Pulm: Clear b/l, no wheezing/rhonchi/rales Abd: soft, nontender, +BS x4 Ext: R foot swelling, Tenderness and bruises from Fall and Fx. Neuro: Alert, no focal deficits, moves all extremities, Skin: warm/dry OBJ DATA Labs CBC & Chem 7: 03/24/21 07:35 03/25/21 05:05 Labs: Abnormal Lab Results 03/25/21 03/24/21 03/24/21 05:05 07:35 07:34 RBC 3.63 L Hgb 12.8 L Hct 39.1 L MCV 107.7 H MCH 35.3 H Lymph # (Auto) 1.29 L Sodium 132 L Anion Gap 7.0 L 6.0 L Creatinine 0.5 L 0.6 L Uric Acid 1.9 L Calcium 7.9 L 8.5 L Direct Bilirubin 0.3 H AST 109 H Lactate Dehydrogenase 242 H Total Creatine Kinase 723 H 1369 H Albumin 2.8 L Albumin/Globulin Ratio 0.8 L Urine Ketones Urine Urobilinogen Urine Mucus 03/23/21 11:56 RBC Hgb Hct MCV MCH Lymph # (Auto) Sodium Anion Gap Creatinine Uric Acid Calcium Direct Bilirubin AST Lactate Dehydrogenase Total Creatine Kinase Albumin Albumin/Globulin Ratio Urine Ketones 20 A Urine Urobilinogen 4.0 A Urine Mucus Few A Meds: Medications Amiodarone [facility] ([facility] Hcl 200 Mg Tablet) [facility] Admin: 03/26/21 09:47 Dose: 400 mg Documented by: Chlordiazepoxide HCl (Chlordiazepoxide 25 Mg Capsule) 25 mg PO Q4HP PRN PRN Reason: Alcohol Withdrawal Docusate Sodium (Docusate Sodium 100 Mg Capsule) 100 mg PO BID [facility] Last Admin: 03/26/21 09:47 Dose: 100 mg Documented by: Enoxaparin Sodium (Enoxaparin 120 Mg/0.8 Ml Syringe) 120 mg SQ BID [facility] Last Admin: 03/25/21 20:25 Dose: 120 mg Documented by: Acetaminophen (Ofirmev) 650 mg in 65 mls @ 130 mls/hr IV Q6HP PRN; Protocol PRN Reason: PAIN/FEVER > 101 Last Infusion: 03/26/21 02:07 Dose: Infused Documented by: Magnesium Sulfate (Magnesium Sulfate) 2 gm in 50 mls @ 50 mls/hr IV UD PRN PRN Reason: Magnesium </= 1.6 Lorazepam (Lorazepam 2 Mg/Ml Vial) 0 mg IV Q4HP PRN; Protocol PRN Reason: Alcohol Withdrawal Metoprolol Tartrate (Metoprolol Tartrate 5 Mg/5 Ml Vial) 5 mg IV Q2HP PRN PRN Reason: Tachyarrhythmias Last Admin: 03/25/21 18:51 Dose: 5 mg Documented by: Metoprolol Tartrate (Metoprolol Tartrate 25 Mg Tablet) 37.5 mg PO BID [facility] Ondansetron HCl (Ondansetron 4 Mg/2 Ml Vial) 4 mg IV Q4HP PRN PRN Reason: Nausea And Vomiting Oxycodone HCl (Oxycodone Hcl 5 Mg Tablet) 0 mg PO Q4HP PRN; Protocol PRN Reason: Per Pain Protocol Last Admin: 03/25/21 23:38 Dose: 5 mg Documented by: Polyethylene Glycol (Polyethylene Glycol 3350 17 Gm Packet) 17 gm PO DAILYP PRN PRN Reason: Constipation Potassium Chloride (Potassium Chloride 20 Meq Tablet) 40 meq PO UD PRN PRN Reason: Potssium is 3-3.5 Potassium Chloride (Potassium Chloride 20 Meq Tablet) 40 meq PO UD PRN PRN Reason: Potassium < 3 Senna (Sennosides 1 Tablet) 2 tab PO DAILYP PRN PRN Reason: Constipation Sodium Chloride (0.9 % Sodium Chloride 10 Ml Syringe) 10 ml IV Q8 [facility] Last Admin: 03/26/21 05:33 Dose: 10 ml Documented by: A/P Narrative A/P Narrative: 81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 #Rhabdomyolysis: 2/2 fall and tissue injury, but has been taking high-dose aspirin as well - CPK peaked at 3758, trending down. Renal function remains normal # Fall/inability to walk/multiple toe fractures of the right foot - CT lower extremity: Nondisplaced spiral fracture - first proximal phalanx. Nondisplaced hairline fracture - second proximal phalanx. Minimally displaced transverse fracture fifth proximal phalanx base. Cortical step-off of the third and fourth proximal phalanges likely represent fractures. They're better seen on plain film. No evidence of acute fracture and the remainder of the foot, ankle, tibia or fibula. - Cont Pain control. - Evaluated by Surgery and cont Boot with ambulation. OP Ortho followup #Chronic atrial fibrillation now with rapid ventricular rate. - Off Amnio drip. Changed to oral amiodarone . Added Metoprolol 25mb bid. Inc to 37.5 bid due to high HR. - Patient refused full Oral anticoagulation. He rather takes aspirin ~900mg po TID. 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 He refused Coumadin/Eliquis/Xarelto. I did not allow that high dose of ASA due to high risk of toxicity and he is back on Lovenox 1mg/kg bid. On Dc pt likes to take ASA as above. # Osteoarthritis: Cont Vit D/Ca # Spinal stenosis w/neuropathy: # Macrocytosis: B12 840, Folate 11.5. # Wound LE. Cont wound care, right foot - Wound team following. DVT PPX. ASA as above. Code. full Dispo. SNF likely 03/27/21. Time Spent With Patient Time: Total time spent is greater than 50% in coordination of care (as documented) at patient's floor/unit and/or counseling patient: QUALITY VTE Deep Vein Thrombosis/Pulmonary Embolism Present on Admission: No
[2021-03-26] MEDS: oxyCODONE HCL 5 MG TABLET PO PRN ×3 (13:45→18:16)
[2021-03-26] MEDS: METOPROLOL TARTRATE 5 MG/5 ML VIAL IV PRN (18:15)
[2021-03-26] MEDS ORDERED: DILTIAZEM 25 MG/5 ML VIAL IV ONE ×2 (22:20→22:24)
[2021-03-26] MEDS ORDERED: ACETAMINOPHEN W/CODEINE #3 1 TABLET PO PRN (23:16)
[2021-03-27 05:55] LABS: Basophils # (Auto) 0.04 K/mcL (0.00-0.20); Basophils % (Auto) 0.4 % (0.0-2.0); Eosinophils # (Auto) 0.03 K/mcL (0.00-0.70); Eosinophils % (Auto) 0.3 % (0.0-7.0); Hematocrit 39.6 % (41.0-55.0); Hemoglobin 13.1 g/dL (13.5-16.5); Lymphocytes # (Auto) 0.61 K/mcL (1.50-4.80); Lymphocytes % (Auto) 6.7 % (15.0-49.0); Mean Cell Volume 105.3 fL (80.0-100.0); Mean Corpuscular HGB Conc 33.1 g/dL (31.0-36.0); Mean Platelet Volume 9.5 fL (7.4-10.4); Monocytes # (Auto) 0.99 K/mcL (0.10-0.90); Monocytes % (Auto) 10.9 % (1.0-12.0); Neutrophils % (Auto) 81.7 % (38.0-78.0); Platelet Count 191 K/mcL (140-440); RBC 3.76 M/mcL (4.50-5.90); Red Cell Distribution Width 11.9 % (11.5-14.5); WBC 9.1 K/mcL (4.5-11.0)
[2021-03-27] MEDS: 0.9 % SODIUM CHLORIDE 10 ML SYRINGE IV SCH ×3 (06:02→21:11)
[2021-03-27 06:49] LABS: Blood Urea Nitrogen 9 mg/dL (8-23); Calcium 8.5 mg/dL (8.6-10.4); Carbon Dioxide 27 mmol/L (22-30); Chloride 98 mmol/L (96-108); Glomerular Filtration Rate 102; Glucose 120 mg/dL (70-105)
[2021-03-27] MEDS: METOPROLOL TARTRATE 5 MG/5 ML VIAL IV PRN (09:14)
[2021-03-27] MEDS: AMIODARONE HCL 200 MG TABLET PO SCH ×2 (09:14→17:23)
[2021-03-27] MEDS: DOCUSATE SODIUM 100 MG CAPSULE PO SCH ×2 (09:15→21:10)
[2021-03-27] MEDS: ASPIRIN 325 MG ENTERIC COATED TABLET PO SCH (09:15)
[2021-03-27] MEDS: METOPROLOL TARTRATE 25 MG TABLET PO SCH ×2 (09:15→21:10)
--- NOTE | 2021-03-27 10:43 | Internal Med Progress Note ---
SUBJECTIVE Subjective Patient information: Note initiated : 03/27/21 at 10:43 am Service Date, if different from initiated Date: [] Patient: Crescencio Yang 81 y/o M admitted on 03/20/21 for fall. Chief Complaint: Fall Interval history: Pt is feeling well today. IR did R Knee arthrocentesis with removal of 40 cc synovial fluid. Heart rate around 105 and increased to 130s with activities. No chest pain shortness of breath dizziness. Constitutional Vitals: Vital Signs Temp Pulse Resp BP Pulse Ox 96.8 F L 116 H 22 126/81 96 03/27/21 08:00 03/27/21 08:34 03/27/21 08:34 03/27/21 08:34 03/27/21 08:34 Period Temp Pulse Resp BP Sys/Osorio Pulse Ox Last 24 Hr 96.8 F-99.4 F 79-170 13-32 110-154/60-118 88-100 Intake and Output 03/26/21 03/27/21 03/27/21 21:59 05:59 13:59 Intake Total 605 240 Output Total 700 100 275 Balance -95 -100 -35 Weight 135.624 kg Intake & Output: Intake & Output 03/26/21 03/27/21 03/27/21 21:59 05:59 13:59 Intake Total 605 240 Output Total 700 100 275 Balance -95 -100 -35 Weight 135.624 kg Intake: IV 65 Oral 540 240 Output: Void Amount 700 100 275 Other: Meal Breakfast Percent of Meal Consumed 75% Feeding Ability Assist with Tray Set Up Urine Appearance Clear Clear Clear Urine Color Dark Yellow Dark Yellow Dark Yellow Exam: General: Alert, Awake, No acute Distress, obese. Comfortable. Pleasant Eyes/N/T: EOMI, Head/Neck: neck supple, CV: irreg irreg, No murmurs, 2+ Leg edema Pulm: Clear b/l, no wheezing/rhonchi/rales Abd: soft, nontender, +BS x4 Ext: R foot swelling, Tenderness and bruises from Fall and Fx. improved Neuro: Alert, no focal deficits, moves all extremities, Skin: warm/dry OBJ DATA Labs CBC & Chem 7: 03/27/21 05:04 03/27/21 05:04 Labs: Abnormal Lab Results 07/10/1703/27/21 03/25/21 05:04 05:04 05:05 RBC 3.76 L Hgb 13.1 L Hct 39.6 L MCV 105.3 H MCH 34.8 H Neut % (Auto) 81.7 H Lymph % (Auto) 6.7 L Lymph # (Auto) 0.61 L [place] # (Auto) 0.99 H Sodium 132 L Anion Gap 7.0 L Creatinine 0.5 L 0.5 L Glucose 120 H Calcium 8.5 L 7.9 L Total Creatine Kinase 723 H Meds: Medications Acetaminophen/Codeine Phosphate (Acetaminophen W/Codeine #3 1 Tablet) 1 tab PO Q6HP PRN; Protocol PRN Reason: Per Pain Protocol Amiodarone [facility] ([facility] H[facility] 200 Mg [facility]t) [facility] Last Admin: 03/27/21 09:14 Dose: 400 mg Documented by: Aspirin (Aspirin 325 Mg Enteric Coated Tablet) 325 mg PO DAILY [facility] Last Admin: 03/27/21 09:15 Dose: 325 mg Documented by: Chlordiazepoxide HCl (Chlordiazepoxide 25 Mg Capsule) 25 mg PO Q4HP PRN PRN Reason: Alcohol Withdrawal Docusate Sodium (Docusate Sodium 100 Mg Capsule) 100 mg PO BID [facility] Last Admin: 03/27/21 09:15 Dose: 100 mg Documented by: Enoxaparin Sodium (Enoxaparin 120 Mg/0.8 Ml Syringe) 120 mg SQ BID [facility] Last Admin: 03/26/21 21:03 Dose: 120 mg Documented by: Acetaminophen (Ofirmev) 650 mg in 65 mls @ 130 mls/hr IV Q6HP PRN; Protocol PRN Reason: PAIN/FEVER > 101 Last Infusion: 03/26/21 15:34 Dose: Infused Documented by: Magnesium Sulfate (Magnesium Sulfate) 2 gm in 50 mls @ 50 mls/hr IV UD PRN PRN Reason: Magnesium </= 1.6 Lorazepam (Lorazepam 2 Mg/Ml Vial) 0 mg IV Q4HP PRN; Protocol PRN Reason: Alcohol Withdrawal Metoprolol Tartrate (Metoprolol Tartrate 5 Mg/5 Ml Vial) 5 mg IV Q2HP PRN PRN Reason: Tachyarrhythmias Last Admin: 03/27/21 09:14 Dose: 5 mg Documented by: Metoprolol Tartrate (Metoprolol Tartrate 25 Mg Tablet) 37.5 mg PO BID [facility] Last Admin: 03/27/21 09:15 Dose: 37.5 mg Documented by: Ondansetron HCl (Ondansetron 4 Mg/2 Ml Vial) 4 mg IV Q4HP PRN PRN Reason: Nausea And Vomiting Polyethylene Glycol (Polyethylene Glycol 3350 17 Gm Packet) 17 gm PO DAILYP PRN PRN Reason: Constipation Potassium Chloride (Potassium Chloride 20 Meq Tablet) 40 meq PO UD PRN PRN Reason: Potssium is 3-3.5 Potassium Chloride (Potassium Chloride 20 Meq Tablet) 40 meq PO UD PRN PRN Reason: Potassium < 3 Senna (Sennosides 1 Tablet) 2 tab PO DAILYP PRN PRN Reason: Constipation Sodium Chloride (0.9 % Sodium Chloride 10 Ml Syringe) 10 ml IV Q8 [facility] Last Admin: 03/27/21 06:02 Dose: Not Given Documented by: A/P Narrative A/P Narrative: 81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 # Rhabdomyolysis: 2/2 fall and tissue injury, but has been taking high-dose aspirin as well - CPK peaked at 3758, trending down. Renal function remains normal # Fall/inability to walk/multiple toe fractures of the right foot - CT lower extremity: Nondisplaced spiral fracture - first proximal phalanx. Nondisplaced hairline fracture - second proximal phalanx. Minimally displaced transverse fracture fifth proximal phalanx base. Cortical step-off of the third and fourth proximal phalanges likely represent fractures. They're better seen on plain film. No evidence of acute fracture and the remainder of the foot, ankle, tibia or fibula. - Cont Pain control. - Evaluated by Surgery and cont Boot with ambulation. OP Ortho followup #Chronic atrial fibrillation now with rapid ventricular rate. - Off Amnio drip. Changed to oral amiodarone . Added Metoprolol 25mb bid. Inc to 50 mg bid due to high HR. - Patient refused full Oral anticoagulation. He rather takes aspirin ~900mg po TID. 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 He refused Coumadin/Eliquis/Xarelto. I did not allow that high dose of ASA due to high risk of toxicity and he is back on Lovenox 1mg/kg bid. On Dc pt likes to take ASA as above. # R Knee pain and swelling . -Likely osteoarthritis. Status post IR arthrocentesis with removal of 40 cc synovial fluid -Continue aspirin for pain control and follow synovial fluid analysis # Osteoarthritis: Cont Vit D/Ca # Spinal stenosis w/neuropathy: # Macrocytosis: B12 840, Folate 11.5. # Wound LE. Cont wound care, right foot - Wound team following. DVT PPX. ASA as above. Code. full Dispo. SNF likely tomorrow 03/28/2021 if heart rate remained stable. Plan of care discussed with patient and nursing staff. I also called patient's last night and updated her with plan of care Time Spent With Patient Time: Total time spent is greater than 50% in coordination of care (as documented) at patient's floor/unit and/or counseling patient: QUALITY VTE Deep Vein Thrombosis/Pulmonary Embolism Present on Admission: No
[2021-03-27] MEDS: ENOXAPARIN 120 MG/0.8 ML SYRINGE SQ SCH ×2 (11:34→21:10)
[2021-03-27] MEDS ORDERED: LIDOCAINE 1% 20 ML VIAL SQ ONE (12:22)
--- NOTE | 2021-03-27 12:49 | XRay Report ---
CLINICAL INFORMATION: Right knee effusion COMPARISON: Right lower extremity CT 03/22/2021 TECHNIQUE: Skin overlying the medial peripatellar region was marked, prepped and locally anesthetized 1% lidocaine using a 25-gauge needle. An 18-gauge spinal needle was placed under fluoroscopic guidance into the patellofemoral joint. Approximately 30 cc of hemorrhagic synovial fluid was aspirated and sent for requested studies. The effusion was totally decompressed. Patient claimed relief of symptoms. Total fluoroscopy time: 15 seconds IMPRESSION: Successful fluoroscopic guided aspiration of approximately 30 cc of hemorrhagic synovial fluid. Fluid was sent for requested studies. It resulted in complete decompression with relief of symptoms. Interpreted and Authenticated by: Marvin Lawrence 03/27/21
[2021-03-27 15:58] LABS: Appearance,Synovial Fluid Bloody; Color,Synovial Fluid Red; Lymphocytes,Synovial Fluid 24 %; Neutrophils,Synovial Fluid 58 % (0-25); Nucleated Cells,Synovial Fld 950 /cumm; Other Cells,Synovial Fluid 18 %
[2021-03-28] MEDS: METOPROLOL TARTRATE 5 MG/5 ML VIAL IV PRN (05:47)
[2021-03-28] MEDS: 0.9 % SODIUM CHLORIDE 10 ML SYRINGE IV SCH ×3 (05:50→17:16)
[2021-03-28] MEDS: ACETAMINOPHEN 650 MG/65 ML BAG IV PRN (07:38)
[2021-03-28] MEDS: DOCUSATE SODIUM 100 MG CAPSULE PO SCH (08:17)
[2021-03-28] MEDS: METOPROLOL TARTRATE 25 MG TABLET PO SCH (08:17)
[2021-03-28] MEDS: ASPIRIN 325 MG ENTERIC COATED TABLET PO SCH (08:17)
[2021-03-28] MEDS: ENOXAPARIN 120 MG/0.8 ML SYRINGE SQ SCH (08:18)
[2021-03-28] MEDS: AMIODARONE HCL 200 MG TABLET PO SCH ×2 (08:18→17:16)
[2021-03-28] MEDS ORDERED: FLEETS ADULT ENEMA PR PRN (10:10)
--- NOTE | 2021-03-28 11:06 | Discharge Summary ---
Discharge Provider Provider Patient information: Note initiated : 03/28/21 at 10:54 am Service Date, if different from initiated Date: [] Patient: Crescencio Yang 81 y/o M admitted on 03/20/21 for fall. Chief Complaint: Fall, Broken R foot Date of admission: 03/20/21 20:37 Discharge date: 03/28/21 Primary care physician: Fahad Dorado Consults: 03/20/21 Consult to Physician [CONS] Stat Comment: Consulting Provider: Morris Najera Reason For Exam: Physician to Consult 03/22/21 08:23 Consult to Physician [CONS] Routine Comment: Consulting Provider: Perez Ozuna Reason For Exam: Physician to Consult Discharge Meds Discharge Medications Home Medications amiodarone 400 mg PO BIDCC 4 Days #60 tab 03/28/21 [Rx Last Taken Unknown] aspirin 325 mg PO DAILY PRN #40 tab 03/28/21 [Rx Last Taken Unknown] docusate sodium [DOK] 100 mg PO BID 30 Days #60 cap 03/28/21 [Rx Last Taken Unknown] metoprolol tartrate 50 mg PO BID 30 Days #120 tab 03/28/21 [Rx Last Taken Unknown] polyethylene glycol 3350 [Miralax] 17 gm PO DAILYP PRN #15 ea 03/28/21 [Rx Last Taken Unknown] sennosides [Senna Lax] 2 tab PO DAILYP PRN #30 tab 03/28/21 [Rx Last Taken Unknown] warfarin 5 mg PO QDAY #30 tab 03/28/21 [Rx Last Taken Unknown] COURSE Hospital Course Hospital course: 81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 he had weakness after fall and inability to walk on his right foot with severe pain. Patient fell about 3 days prior to admission. His Right foot was swollen and bruised. His hospital course is as following. #Mechanical fall l # Multiple toe fractures of the right foot - CT lower extremity: Nondisplaced spiral fracture - first proximal phalanx. Nondisplaced hairline fracture - second proximal phalanx. Minimally displaced transverse fracture fifth proximal phalanx base. Cortical step-off of the third and fourth proximal phalanges likely represent fractures. They're better seen on plain film. No evidence of acute fracture and the remainder of the foot, ankle, tibia or fibula. - Evaluated by Surgery and cont Boot with ambulation. OP Ortho followup. Cont Pain control. #Chronic atrial fibrillation with RVR. Fluctuating heart rate between [address]4839 20s. -At home patient was taking aspirin 9 4 5 mg 3 times daily for stroke prevention -Treated with amnio drip. Changed to oral amiodarone tapering dose. Added Metoprolol 25mb bid. Inc to 50 mg bid due to high HR. - Patient refused full Oral anticoagulation. He rather takes aspirin ~945mg po TID. 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 Initially he refused Coumadin/Eliquis/Xarelto. I did not allow that high dose of ASA due to high risk of toxicity and he is back on Lovenox 1mg/kg bid. On Dc pt likes to take ASA as above. -On day of discharge patient agreed to start Coumadin. Started 5 mg daily. No indication for bridging with Lovenox. -Outpatient follow-up with cage maker for adjustment of medication. # R Knee pain and swelling . -Likely osteoarthritis. Status post IR arthrocentesis with removal of 40 cc synovial fluid -Synovial fluid showed white blood cell 950, neutrophils 58, lymphocyte 24, bloody. This is consistent with inflammatory arthritis. -Continue aspirin for pain control. Outpatient follow-up # Osteoarthritis: Cont Vit D/Ca # Spinal stenosis w/neuropathy: # Macrocytosis: B12 840, Folate 11.5. # Wound LE. Cont wound care, right foot - Wound team following. Code. full Dispo. SNF Plan of care discussed with patient and nursing staff. I also called patient's last night and updated her with plan of care Total time of discharge 36 minutes Disposition: Patient discharged to long-term home Condition on discharge: Hemodynamically stable. Tolerated p.o. Discharge activity: As tolerated Discharge diet: Healthy, low-fat Discharge medication: See med reconciliation form Discharge follow-up: INR check 03/30/2021. Goal of INR 23. Primary care physician within 1 week for post hospital follow-up. Cardiology clinic in 1-2-weeks for post hospital follow-up Note that patient is high risk for readmission due to his A. fib with RVR. PT/OT should be very gentle to avoid rapid ventricular rate. Discharge diagnosis: Mechanical fall with right foot fracture. Atrial fibrillation with RVR Time Spent with Patient Time attestation: Total time spent providing and/or coordinating discharge services: Time spent: Greater than 30 minutes (Total time of discharge 36 minutes) EXAM Constitutional Vitals: Temp Pulse Resp BP Pulse Ox 97.9 F 99 H 20 130/77 99 03/28/21 07:43 03/28/21 07:43 03/28/21 07:43 03/28/21 07:43 03/28/21 07:43 Discharge Data Data Completed and Pending Labs on day of discharge: Labs from last 24 hours 03/27/21 03/27/21 10:42 10:42 Fluid Source Fluid Color Fluid Appearance Fluid RBC Fluid Nucleated Cells Fluid Neutrophils Synovial Source Right knee Synovial Color Red Synovial Appearance Bloody Synovial Tot Cell Ct 100 Synovial Nuc Cells 950 Synovial Neutrophils 58 H Synovial Lymphocytes 24 Synovial Other Cells 18 Preliminary micro results at discharge 03/27/21 10:43 Gram Stain - Preliminary Aspirate - Knee Body Fluid Culture - Preliminary Discharge Plan Patient/Caregiver Discharge Instructions Activity: increase activity as tolerated Diet: Low Sodium (2gm) and Cardiac Prescriptions: New sennosides [Senna Lax] 8.6 mg Tablet 2 tab PO DAILYP PRN (Reason: Constipation) Qty: 30 RF: 0 polyethylene glycol 3350 [Miralax] 17 gram Powder In Packet 17 gm PO DAILYP PRN (Reason: Constipation) Qty: 15 RF: 0 amiodarone 200 mg Tablet 400 mg PO BIDCC 4 Days Qty: 60 RF: 0 docusate sodium [DOK] 100 mg Capsule 100 mg PO BID 30 Days Qty: 60 RF: 0 metoprolol tartrate 25 mg Tablet 50 mg PO BID 30 Days Qty: 120 RF: 0 aspirin 325 mg Tablet,Delayed Release (Dr/Ec) 325 mg PO DAILY PRN (Reason: Joint pain) Qty: 40 RF: 0 warfarin 5 mg tablet 5 mg PO QDAY Qty: 30 RF: 1 Discontinued metoprolol succinate 50 mg Tablet Extended Release 24 Hr 25 mg PO QDAY RF: 0 aspirin [Ecotrin] 325 mg Tablet,Delayed Release (Dr/Ec) 975 mg PO TID RF: 0 Other Ambulatory Orders: OT Discharge Order (Routine) Facility: [facility] - Location: Conversion-[facility]f Ordered By: Robert Morelos Physical Therapy at Discharge - General (Routine) Facility: [facility] - Location: Conversion-[facility]f Ordered By: Robert Morelos Follow Up Plan Follow up with: Perez Ozuna MD [Physician] - 04/07/21 10:00 am (Please check in at 9:45 am) Patient Disposition: Xfer SNF Prognosis: Fair Rehab Potential: Fair I certify that the patient requires SNF services: Yes Overall status at discharge: patient is progressing back to baseline Discharge Orders: Discharge Order (Routine); Ordered 03/28/21 Ordered By: Robert Morelos QUALITY VTE Deep Vein Thrombosis/Pulmonary Embolism Present on Admission: No
== END 2021-03-28 16:47 | disposition swing bed (61) | DRG 563 ==
LOC: ED 14:23 → INTOOBSV 20:37 → MEDSUR 20:37 → OBSVTOIN 20:37 → MEDSUR 20:40 → ICU 03-22 17:00 → MEDSUR 03-22 17:01 → ICU 03-22 18:05
PROVIDERS: ADMIT Internal Medicine; ATTEND Internal Medicine